=== PATIENT | male | born 1985 | race Caucasian/White ===

== ENCOUNTER 2017-07-18 07:48 | Day surgery (SDC) | payer BC, OTHER ==
[2017-07-11 09:34] VITALS: BMI 32.3
[~2017-07-18 07:48] MED LIST: DEXAMETHASONE SOD PHOSPHATE 4 MG/ML 1 ML VIAL IV ONE; FAMOTIDINE 20 MG/2 ML VIAL IV ONE; HYDROmorphone 0.5 MG/0.5 ML SYRINGE IVP PRN; MORPHINE SULFATE 4 MG/ML SYRINGE IV PRN; ONDANSETRON 4 MG/2 ML VIAL IVP ONE; ONDANSETRON 4 MG/2 ML VIAL IVP PRN; ceFAZolin 1,000 MG in DEXTROSE/WATER 1 50ML.BAG IV ONE
[2017-07-18] MEDS: OXYMETAZOLINE 0.05% NASL SPRAY 1 SPRAY BOTTLE NASAL ONE ×5 (08:45→09:10)
[2017-07-18] MEDS ORDERED: LIDOCAINE 1% 20 ML VIAL (10MG/ML) FOR IV START INTRADERMA ONE (09:10)
[2017-07-18] MEDS: LACTATED RINGERS 1,000 ML IV SCH ×2 (09:10→09:35)
[2017-07-18] MEDS ORDERED: MIDAZOLAM 2 MG/2 ML VIAL ONE (09:35)
[2017-07-18] MEDS ORDERED: ROCURONIUM BROMIDE 10 MG/ML 10 ML VIAL IV ONE (09:35)
[2017-07-18] MEDS ORDERED: fentaNYL (PF) 50 MCG/ML 2 ML AMP ONE (09:35)
[2017-07-18] MEDS ORDERED: GLYCOPYRROLATE 0.2 MG/ML 2 ML VIAL ONE (09:35)
[2017-07-18] MEDS ORDERED: PROPOFOL 10 MG/ML 20 ML VIAL IV ONE (09:35)
[2017-07-18] MEDS ORDERED: SUCCINYLCHOLINE CHLORIDE 100 MG/5 ML SYR IV ONE (09:35)
[2017-07-18] MEDS ORDERED: NEOSTIGMINE 1 MG/ML 10 ML VIAL ONE (09:35)
[2017-07-18] MEDS ORDERED: ONDANSETRON 4 MG/2 ML VIAL ONE (09:35)
[2017-07-18] MEDS ORDERED: DEXAMETHASONE SOD PHOS (MDV) 100 MG/10 ML VIAL ONE (09:35)
[2017-07-18] MEDS ORDERED: LIDOCAINE 1% INJ 10MG/ML (20 ML MDV) ONE (09:35)
[2017-07-18] MEDS ORDERED: BACITRACIN 500 UNIT/GM OINT 28.4 GM TUBE TOPICAL ONE (09:58)
[2017-07-18] MEDS ORDERED: LIDOCAINE-EPINEPHRINE (PF) 5 ML AMPUL SUBMUCOSAL ONE ×2 (10:00)
--- NOTE | 2017-07-18 10:35 | P.OP ---
Date of Procedure: 07/18/17 Preoperative Diagnosis: Deviated nasal septum Inferior turbinate hypertrophy Postoperative Diagnosis: Same Procedure(s) Performed: Septoplasty Outfracture and submucous resection of the inferior turbinates Anesthesia: GLENNA Surgeon: Junaid Barry Estimated Blood Loss (ml): 5 Pathology: other (Nasal septal bone and cartilage) Condition: stable Disposition: PACU Indications for Procedure: This is a 32-year-old white male whose had difficulties with chronic nasal airway obstruction bilaterally which is nonseasonal. He did not improve with steroid nasal spray or other medications. Operative Findings: Septum is deviated bilaterally. Inferior turbinate hypertrophy bilaterally the septum is deviated to the left anteriorly and to the right posteriorly but mostly to the right Description of Procedure: The patient was brought in the operative suite and placed in a supine position. Patient underwent induction of general anesthesia with oral endotracheal intubation without difficulty. The patient was prepped and draped in usual aseptic fashion. 1% lidocaine with 1-100,000 epinephrine was infused submucosally both sides nasal septum. While this was taking vasoconstrictive effect the inferior turbinates were infractured with the Travis elevator and Coblation was utilized to ablate a portion of the submucosal soft tissue of the inferior turbinates and then outfractured with the Travis elevator. A left hemitransfixion incision was made with the mucoperichondrial and mucoperiosteal flap on left elevated. Bony cartilaginous junction was disarticulated and the mucoperiosteal flap on the right was elevated. Bony nasal septal deformities were removed with Fco forceps and an inferior cartilaginous strip was removed leaving a full 1.5 cm caudal strut. Checking intranasally this corrected the nasoseptal deformities and the hemitransfixion incision was closed with a running 4-0 chromic suture. Bilateral Holliday airway splints coated bacitracin ointment were placed in nasal cavities and sutured trans-septally with a 4-0 Vicryl suture. The patient was suctioned in oral gastric fashion and was allowed to emerge from general anesthesia having tolerated procedure well. The patient was extubated operative suite and transferred to postop recovery in satisfactory condition.
[2017-07-18 10:45] VITALS: TEMP 96.8
[2017-07-18 10:52] VITALS: RESP 16
[2017-07-18] MEDS: fentaNYL (PF) 50 MCG/ML 2 ML AMP IV ONE ×2 (11:00→11:05)
[2017-07-18] MEDS: fentaNYL (PF) 50 MCG/ML 2 ML AMP IVP ONE ×2 (11:12→11:17)
[2017-07-18] MEDS ORDERED: LACTATED RINGERS 1,000 ML IV ONE (11:31)
[2017-07-18] MEDS ORDERED: HYDROcodone/APAP 7.5-325MG 1 EACH TAB PO ONE (11:43)
[2017-07-18 12:29] VITALS: BP 136/87; PULSE 89
== END 2017-07-18 12:42 | disposition home or self-care (01) ==
LOC: OR 07:48
PROVIDERS: ATTEND Otolaryngology
DX: J34.2 Deviated nasal septum (principal); J34.3 Hypertrophy of nasal turbinates
CPT/HCPCS: 88300; 30520; 30140; J2250; J1100 ×2; J2710; J2405; J2001; J3010; J0690; J0330; J2704

== ENCOUNTER 2019-09-25 11:48 | Emergency (ER) | payer BC, OTHER ==
[2019-09-25 11:53] VITALS: BP 159/95; PULSE 102; RESP 18; TEMP 97.9
[2019-09-25] MEDS ORDERED: KETOROLAC 60 MG/2 ML VIAL IM STA (12:26)
[2019-09-25] MEDS ORDERED: methylPREDNISolone SOD SUCCI 125 MG/2 ML VIAL IM ONE (12:26)
[2019-09-25] MEDS ORDERED: ACET/COD 300 MG/30 MG STARTER PACK 6 TAB BTL PO STA (12:26)
[2019-09-25] MEDS ORDERED: ORPHENADRINE 30 MG/ML 2 ML VIAL IM STA (12:26)
--- NOTE | 2019-09-25 12:29 | ED ---
Back Pain HPI - General Chief Complaint: Back Pain/Injury Stated Complaint: back pain Time Seen by Provider: 09/25/19 11:55 Source: patient, RN notes reviewed, old records reviewed Limitations: no limitations - History of Present Illness Initial Comments: Patient is a 34-year-old male presents emergency Department today for onset of back pain rating down the right leg. He has had symptoms of 4 and was diagnosed with sciatic nerve pain. Patient states the symptoms started yesterday after twisting at work. He had a dull ache at that time from the right side of the lower back to the leg. He states that after sleeping this morning he was unable to get up because of the severe pain with this right back and leg. He states that he has no abdominal pain. Denies saddle anesthesias. He denies any fevers or chills. He reports he previously was treated with steroids and anti- inflammatory medications. He did take Motrin prior to arrival. - Related Data Previous Rx's Medication Instructions Recorded Acetaminophen-Codeine 300-30mg 1 tab PO Q6H PRN 3 Days #12 tablet 09/25/19 [Tylenol w/codeine #3] Cyclobenzaprine [Flexeril] 10 mg PO TID #12 tab 09/25/19 Dexamethasone 0.75 mg PO DAILY #12 tab 09/25/19 Ibuprofen [Motrin] 600 mg PO Q8HR PRN #30 tab 09/25/19 Allergies Allergy/AdvReac Type Severity Reaction Status Date / Time No Known Allergies Allergy Verified 09/25/19 11:53 Review of Systems ROS Statement: Those systems with pertinent positive or pertinent negative responses have been documented in the HPI. ROS Other: All systems not noted in ROS Statement are negative. Past Medical History Past Medical History: No Reported History History of Any Multi-Drug Resistant Organisms: None Reported Past Surgical History: Orthopedic Surgery Additional Past Surgical History / Comment(s): left ankle, right wrist Past Anesthesia/Blood Transfusion Reactions: No Reported Reaction Past Psychological History: No Psychological Hx Reported Smoking Status: Never smoker Past Alcohol Use History: None Reported Past Drug Use History: None Reported - Past Family History Mother Family Medical History: No Reported History General Exam - General Exam Comments Initial Comments: Alert and oriented 34-year-old male. No significant distress. Limitations: no limitations General appearance: alert, in no apparent distress Head exam: Present: atraumatic, normocephalic, normal inspection Eye exam: Present: normal appearance, PERRL, EOMI. Absent: scleral icterus, conjunctival injection, periorbital swelling ENT exam: Present: normal exam, mucous membranes moist Neck exam: Present: normal inspection. Absent: tenderness, meningismus, lymphadenopathy Respiratory exam: Present: normal lung sounds bilaterally. Absent: respiratory distress, wheezes, rales, rhonchi, stridor Cardiovascular Exam: Present: regular rate, normal rhythm, normal heart sounds. Absent: systolic murmur, diastolic murmur, rubs, gallop, clicks GI/Abdominal exam: Present: soft, normal bowel sounds. Absent: distended, tenderness, guarding, rebound, rigid Extremities exam: Present: normal inspection, full ROM, normal capillary refill. Absent: tenderness, pedal edema, joint swelling, calf tenderness Back exam: Present: normal inspection, full ROM, other (Patient has positive right leg straight leg test. Normal pulses distally.) Neurological exam: Present: alert, oriented X3, CN II-XII intact Psychiatric exam: Present: normal affect, normal mood Skin exam: Present: warm, dry, intact, normal color. Absent: rash Course Vital Signs 09/25/19 11:51 Temperature 97.9 F Pulse Rate 102 H Respiratory 18 Rate Blood Pressure 159/95 O2 Sat by Pulse 99 Oximetry Medical Decision Making - Medical Decision Making 34-year-old male presents with right sciatic leg pain and back pain after laying in bed today after twisting it at work. Patient has no saddle anesthesias. He has full range of motion the leg. He does report reproducible pain with straight leg test on the right. No rashes or any other skin changes on the back or legs. Patient has normal pulses distally. He denies any fall or trauma and discussed that imaging is not required at this time. He was picked slightly treated for similar situation with steroids. He was given IM Toradol Solu- Medrol and Norflex and oral pain medication. Patient was reevaluated and resting in bed. Advised Patient to follow up with primary care physician and will discharge the Patient with anti-inflammatory medication and muscle relaxers. All questions were answered. Disposition Clinical Impression: Sciatica Disposition: HOME SELF-CARE Condition: Good Instructions (If sedation given, give patient instructions): Sciatica (ED) Additional Instructions: Results a between heat and ice to the lower back and over sciatic notch. Recommended do gentle stretching. Take anti-inflammatory medication. Return to ED if any alarming signs or symptoms occur. Prescriptions: Dexamethasone 0.75 mg PO DAILY #12 tab Cyclobenzaprine [Flexeril] 10 mg PO TID #12 tab Ibuprofen [Motrin] 600 mg PO Q8HR PRN #30 tab PRN Reason: Pain Acetaminophen-Codeine 300-30mg [Tylenol w/codeine #3] 1 tab PO Q6H PRN 3 Days #12 tablet PRN Reason: Pain Is patient prescribed a controlled substance at d/c from ED?: Yes If prescribed controlled substance>3 days was MAPS reviewed?: Prescribed <3 Days If opioid is for acute pain is fill amount 7 days or less?: Yes If Rx opioid, was Start Talking consent form obtained?: Yes Referrals: Willam Ramey DO [Primary Care Provider] - 1-2 days Time of Disposition: 12:26
== END 2019-09-25 12:57 | disposition home or self-care (01) ==
LOC: EC 11:48
DX: M54.31 Sciatica, right side (principal)
CPT/HCPCS: 99283; 96372 ×3; J2360; J2930; J1885

== ENCOUNTER → 2019-11-27 | Outpatient (CLI) | payer BC | END | disposition home or self-care (01) | LOC: LABWHC1 14:41 | PROVIDERS: ATTEND Emergency Medicine | DX: Z20.828 Contact with and (suspected) exposure to other viral communicable diseases (principal) | CPT/HCPCS: U0003; C9803 ==

== ENCOUNTER 2019-12-21 11:03 | Emergency (ER) | payer BC ==
[2019-12-21 11:16] VITALS: RESP 18
[2019-12-21] MEDS ORDERED: predniSONE 50 MG TAB PO STA (11:27)
[2019-12-21] MEDS ORDERED: KETOROLAC 15 MG/ML 1 ML VIAL IM STA (11:27)
[2019-12-21] MEDS ORDERED: ORPHENADRINE 30 MG/ML 2 ML VIAL IM STA (11:27)
--- NOTE | 2019-12-21 11:37 | ED ---
General Adult HPI - General Chief complaint: Back Pain/Injury Stated complaint: low back pain Time Seen by Provider: 12/21/19 11:17 Source: patient, RN notes reviewed Mode of arrival: ambulatory Limitations: no limitations - History of Present Illness Initial comments: 34-year-old male with a past medical history of sciatica presents to the emergency department for low back pain. Patient states that yesterday he was getting off his boat when his right foot slipped and he felt a pain in his back. States that it triggered his sciatica. He now has pain shooting down his right leg to his right knee. Patient reports that he feels okay bending forward but cannot stand up straight. Patient has a history of this. Patient reports he usually needs steroids to help with his pain. Patient states he sees chiropractor for this has never seen orthopedics or had MRI. Patient denies bladder or bowel changes. Denies saddle anesthesia. Denies weakness of the lower extremities. Patient denies fevers or history of IV drug abuse. Patient reports the last time he had Toradol and Norflex it helped significantly with his pain.Patient has no other complaints at this time including shortness of breath, chest pain, abdominal pain, nausea or vomiting, headache, or visual changes. - Related Data Previous Rx's Medication Instructions Recorded Acetaminophen-Codeine 300-30mg 1 tab PO Q6H PRN 3 Days #12 tablet 09/25/19 [Tylenol w/codeine #3] Cyclobenzaprine [Flexeril] 10 mg PO TID #12 tab 09/25/19 Ibuprofen [Motrin] 600 mg PO Q8HR PRN #30 tab 09/25/19 dexAMETHasone [Dexamethasone] 0.75 mg PO DAILY #12 tab 09/25/19 predniSONE 50 mg PO DAILY #4 tablet 12/21/19 Allergies Allergy/AdvReac Type Severity Reaction Status Date / Time No Known Allergies Allergy Verified 12/21/19 11:13 Review of Systems ROS Statement: Those systems with pertinent positive or pertinent negative responses have been documented in the HPI. ROS Other: All systems not noted in ROS Statement are negative. Past Medical History Past Medical History: No Reported History History of Any Multi-Drug Resistant Organisms: None Reported Past Surgical History: Orthopedic Surgery Additional Past Surgical History / Comment(s): left ankle, right wrist Past Anesthesia/Blood Transfusion Reactions: No Reported Reaction Past Psychological History: No Psychological Hx Reported Smoking Status: Never smoker Past Alcohol Use History: Occasional Past Drug Use History: None Reported - Past Family History Mother Family Medical History: No Reported History General Exam Limitations: no limitations General appearance: alert, in no apparent distress Head exam: Present: atraumatic, normocephalic, normal inspection Eye exam: Present: normal appearance, PERRL, EOMI. Absent: scleral icterus, conjunctival injection, periorbital swelling ENT exam: Present: normal exam, mucous membranes moist Neck exam: Present: normal inspection, full ROM. Absent: tenderness, menin gismus, lymphadenopathy Respiratory exam: Present: normal lung sounds bilaterally. Absent: respiratory distress, wheezes, rales, rhonchi, stridor Cardiovascular Exam: Present: regular rate, normal rhythm, normal heart sounds. Absent: systolic murmur, diastolic murmur, rubs, gallop, clicks GI/Abdominal exam: Present: soft, normal bowel sounds. Absent: distended, tenderness, guarding, rebound, rigid Extremities exam: Present: normal capillary refill (Capillary refill less than 2 seconds, DP pulses 2+ in the right lower extremity.), other (Strength 5 out of 5 in lower extremities bilaterally.) Neurological exam: Present: alert Psychiatric exam: Present: normal affect, normal mood Course Vital Signs 12/21/19 12/21/19 12/21/19 11:15 11:52 12:07 Temperature 98.8 F 98.3 F Pulse Rate 116 H 122 H 108 H Respiratory 18 18 Rate Blood Pressure 142/80 130/84 O2 Sat by Pulse 96 96 Oximetry Medical Decision Making - Medical Decision Making No red flag symptoms. Patient is complaining of sciatic-type symptoms. He does have a history of this. Distal pulses 2+. Sensation intact. Neurovascular status intact. Patient ambulatory. Patient was given Toradol and Norflex. He will be written a prescription for prednisone. He will follow up with primary care as well as orthopedics. He will return for any worsening symptoms. Patient was tachycardic here in the emergency room. Patient has a history of tachycardia on review of previous charts. Patient reports that he is very anxious. States he has anxiety with being in the ER. Patient states the mask is also causing him some anxiety. States he also drink a monster just before coming this morning and did not eat anything for breakfast. Patient also does have mild pain. Heart rate did improve to 108. I did offer further management of heart rate however patient prefers to be discharged and follow-up with a primary care physician. He states he has no other symptoms. I did repeat a temperature which is 98.3. I discussed this case with attending Dr. Davies who agrees with this assessment and treatment plan. Disposition Clinical Impression: Mechanical back pain, Lumbar radiculopathy, acute Disposition: HOME SELF-CARE Condition: Good Instructions (If sedation given, give patient instructions): Lumbar Radiculopathy (ED) Additional Instructions: Please take Tylenol for pain. Take prednisone as directed. Follow up with primary care and orthopedics. If you have worsening symptoms such as bladder or bowel changes, numbness or tingling in the groin or buttock region, weakness of the legs, or fevers return immediately to the emergency room. Prescriptions: predniSONE 50 mg PO DAILY #4 tablet Is patient prescribed a controlled substance at d/c from ED?: No Referrals: Mark Fine DO [Doctor of Osteopathic Medicine] - 1-2 days Time of Disposition: 11:35
[2019-12-21 12:08] VITALS: BP 130/84; PULSE 108; TEMP 98.3
== END 2019-12-21 12:08 | disposition home or self-care (01) ==
LOC: EC 11:03
DX: M54.16 Radiculopathy, lumbar region (principal); R00.0 Tachycardia, unspecified; F41.9 Anxiety disorder, unspecified; Z98.890 Other specified postprocedural states
CPT/HCPCS: 99283; 96372 ×2; J2360; J1885; J7512

== ENCOUNTER → 2020-03-02 | Outpatient (CLI) | payer BC | END | disposition home or self-care (01) | LOC: LABWHC1 16:00 | PROVIDERS: ATTEND Emergency Medicine | DX: Z20.828 Contact with and (suspected) exposure to other viral communicable diseases (principal) | CPT/HCPCS: U0003; C9803 ==

== ENCOUNTER → 2020-03-10 | Outpatient (CLI) | payer BC ==
--- NOTE | 2020-03-11 06:56 | MR ---
EXAMINATION TYPE: MR lumbar spine wo con DATE OF EXAM: 03/10/2020 COMPARISON: CT abdomen and pelvis September 09, 2013. Lumbar spine x-ray 2012 HISTORY: Low back pain per order. Pain for 3 months into right lower extremity per patient. TECHNIQUE: Multiplanar, multisequence imaging of the lumbar spine is performed without IV contrast. FINDINGS: Sagittal images of the lumbar spine show vertebral body heights to remain satisfactory. Ali gnment stable with slight grade 1 retrolisthesis L5 on S1. Disc desiccation L5-S1 level with mild dis c space narrowing otherwise the intervertebral discs demonstrate normal heights and hydration. The c onus medullaris is normal in position and signal ending at mid L1 level. The bone marrow signal inte nsity is within normal limits. Axial images T12-L1 through the L3-L4 levels appear within normal limits. Axial images at the L4-L5 level show mild facet degenerative changes bilaterally. Axial images at the L5-S1 level show mild broad disc bulge with more prominent broad-based right para central disc protrusion measuring 5 mm in AP diameter by 20 mm transversely axial image 6 and sagitta l image 9. This effaces anterolateral thecal sac along with the lateral recess and the central right S1 nerve. Mild bilateral neural foraminal narrowing noted. [id number] facet degenerative change s bilaterally. Paraspinal muscle bulk is preserved. IMPRESSION: Prominent disc herniation L5-S1 level correlates with patient's right-sided radiculopathy type symptoms.
== END | disposition home or self-care (01) ==
LOC: RADMRIMAIN 16:15
PROVIDERS: ATTEND Orthopaedic Surgery
DX: M51.27 Other intervertebral disc displacement, lumbosacral region (principal)
CPT/HCPCS: 72148

== ENCOUNTER → 2020-03-19 | Outpatient (CLI) | payer BC ==
[2020-03-19 14:35] LABS: Basophils # (A) 0.2 k/uL (0-0.2); Basophils % (A) 2 %; Eosinophils # (A) 0.3 k/uL (0-0.7); Eosinophils % (A) 3 %; Lymphocytes # (A) 2.8 k/uL (1.0-4.8); Lymphocytes % (A) 28 %; MCHC 34.1 g/dL (31.0-37.0); Mean Platelet Volume 6.6; Monocytes # (A) 0.5 k/uL (0-1.0); Monocytes % (A) 5 %; Neutrophils # (A) 6.3 k/uL (1.3-7.7); Neutrophils % (A) 61 %; Platelet Count 426 k/uL (150-450); RDW 12.4 % (11.5-15.5); WBC 10.3 k/uL (3.8-10.6)
== END | disposition home or self-care (01) ==
LOC: LABPAT 13:46
PROVIDERS: ATTEND Orthopaedic Surgery
DX: Z22.322 Carrier or suspected carrier of Methicillin resistant Staphylococcus aureus (principal); M48.061 Spinal stenosis, lumbar region without neurogenic claudication; M51.26 Other intervertebral disc displacement, lumbar region
CPT/HCPCS: 80051; 85025; 85610; 87070

== ENCOUNTER 2020-04-13 18:31 | Inpatient (IN) | payer BC ==
[2020-04-13] MEDS ORDERED: ACETAMINOPHEN TAB 500 MG TAB PO STA (19:13)
--- NOTE | 2020-04-13 19:19 | ED ---
General Adult HPI - General Chief complaint: Recheck/Abnormal Lab/Rx Stated complaint: poss post op infection, fever Time Seen by Provider: 04/13/20 19:01 Source: patient, RN notes reviewed Mode of arrival: wheelchair Limitations: no limitations - History of Present Illness Initial comments: Patient is a pleasant 34-year-old male presenting to the emergency department with concerns for fever. Patient did have dissected me done with Dr. Carpio 7 on March 24. Patient states over the past week or 2 he has been having some dehiscence of the wound with yellow discharge, clear. Patient has pain with walking. No weakness. Patient did develop fever today. Patient is on antibiotics and does have 4 days left. - Related Data Home Medications Medication Instructions Recorded Confirmed Acetaminophen Tab [Tylenol] 1,000 mg PO Q6H PRN 04/13/20 04/13/20 Cyclobenzaprine [Flexeril] 10 mg PO TID PRN 04/13/20 04/13/20 Gabapentin 300 mg PO TID PRN 04/13/20 04/13/20 [id number] [Duricef] 500 mg PO BID 04/13/20 04/13/20 Allergies Allergy/AdvReac Type Severity Reaction Status Date / Time No Known Allergies Allergy Verified 04/13/20 19:48 Review of Systems ROS Statement: Those systems with pertinent positive or pertinent negative responses have been documented in the HPI. ROS Other: All systems not noted in ROS Statement are negative. Constitutional: Reports: fever, chills Eyes: Denies: eye pain ENT: Denies: ear pain Respiratory: Denies: cough Cardiovascular: Denies: chest pain Endocrine: Denies: fatigue Gastrointestinal: Denies: abdominal pain Genitourinary: Denies: dysuria Musculoskeletal: Denies: back pain Skin: Denies: lesions Neurological: Denies: weakness Past Medical History Past Medical History: No Reported History History of Any Multi-Drug Resistant Organisms: None Reported Past Surgical History: Orthopedic Surgery Additional Past Surgical History / Comment(s): left ankle, right wrist, back surgery 03/24/20 Past Anesthesia/Blood Transfusion Reactions: No Reported Reaction Past Psychological History: No Psychological Hx Reported Smoking Status: Never smoker Past Alcohol Use History: Occasional Past Drug Use History: None Reported - Past Family History Mother Family Medical History: No Reported History General Exam Limitations: no limitations General appearance: alert, in no apparent distress Head exam: Present: atraumatic, normocephalic Eye exam: Present: normal appearance, PERRL ENT exam: Present: normal oropharynx Neck exam: Present: normal inspection. Absent: tenderness, meningismus Respiratory exam: Present: normal lung sounds bilaterally Cardiovascular Exam: Present: tachycardia GI/Abdominal exam: Present: soft. Absent: distended, tenderness Extremities exam: Present: normal inspection Back exam: Present: other (Midline lumbar incision with mild dehiscence and mild yellow drainage, minimal erythema does not extend past the wound) Neurological exam: Present: alert. Absent: motor sensory deficit Expanded Sensory exam: Lower Extremity Light Touch: Normal Motor strength exam: RUE: 5, LUE: 5, RLE: 5, LLE: 5 Psychiatric exam: Present: normal affect, normal mood Skin exam: Present: erythema (Minimal erythema at the wound site that does not extend past) Course Vital Signs 04/13/20 04/13/20 04/13/20 18:33 19:50 20:22 Temperature 99.6 F 101.9 F H Pulse Rate 118 H 124 H 128 H Respiratory 18 18 20 Rate Blood Pressure 135/78 146/95 140/97 O2 Sat by Pulse 98 97 96 Oximetry - Reevaluation(s) Reevaluation #1: 04/13/20 20:59 Patient does meet sepsis criteria diagnosed at 2049. Blood culture and lactic acid were ordered. IV antibiotics will be ordered. EKG Findings - EKG Comments: EKG Findings:: Sinus tachycardia 126. IN 146. QRS 80. QT 292. QTC 422. Normal axis. Normal QRS. No acute ST change. Medical Decision Making - Medical Decision Making Patient reevaluated and updated. Case discussed with Dr. Joshi, covering for Keith Baldwin, who will admit. He does recommend IV Ancef and infectious disease consult. - Lab Data Result diagrams: 04/13/20 19:41 04/13/20 19:49 Lab Results 04/13/20 04/13/20 04/13/20 Range/Units 19:41 19:49 19:49 WBC 13.5 H (3.8-10.6) k/uL RBC 5.47 (4.30-5.90) m/uL Hgb 16.1 (13.0-17.5) gm/dL Hct 48.2 (39.0-53.0) % MCV 88.2 (80.0-100.0) fL MCH 29.5 (25.0-35.0) pg MCHC 33.5 (31.0-37.0) g/dL RDW 12.9 (11.5-15.5) % Plt Count 416 (150-450) k/uL MPV 6.9 Neutrophils % 86 % Lymphocytes % 7 % Monocytes % 5 % Eosinophils % 1 % Basophils % 1 % Neutrophils # 11.6 H (1.3-7.7) k/uL Lymphocytes # 1.0 (1.0-4.8) k/uL Monocytes # 0.7 (0-1.0) k/uL Eosinophils # 0.1 (0-0.7) k/uL Basophils # 0.1 (0-0.2) k/uL PT 10.8 (9.0-12.0) sec INR 1.0 (<1.2) APTT 25.7 (22.0-30.0) sec Sodium 135 L (137-145) mmol/L Potassium 4.5 (3.5-5.1) mmol/L Chloride 98 (98-107) mmol/L Carbon Dioxide 27 (22-30) mmol/L Anion Gap 10 mmol/L BUN 16 (9-20) mg/dL Creatinine 0.91 (0.66-1.25) mg/dL Est GFR (CKD-EPI)AfAm >90 (>60 ml/min/1.73 sqM) Est GFR (CKD-EPI)NonAf >90 (>60 ml/min/1.73 sqM) Glucose 104 H (74-99) mg/dL Plasma Lactic Acid Anatoly (0.7-2.0) mmol/L Calcium 9.8 (8.4-10.2) mg/dL Total Bilirubin 1.0 (0.2-1.3) mg/dL AST 46 (17-59) U/L ALT 54 H (4-49) U/L Alkaline Phosphatase 83 (38-126) U/L Total Protein 8.6 H (6.3-8.2) g/dL Albumin 5.0 (3.5-5.0) g/dL Urine Color Urine Appearance (Clear) Urine pH (5.0-8.0) Ur Specific [place] (1.001-1.035) Urine Protein (Negative) Urine Glucose (UA) (Negative) Urine Ketones (Negative) Urine Blood (Negative) Urine Nitrite (Negative) Urine Bilirubin (Negative) Urine Urobilinogen (<2.0) mg/dL Ur Leukocyte Esterase (Negative) Urine RBC (0-5) /hpf Urine WBC (0-5) /hpf Urine Mucus (None) /hpf Coronavirus (PCR) (Not Detectd) 04/13/20 04/13/20 04/13/20 Range/Units 19:49 19:49 20:22 WBC (3.8-10.6) k/uL RBC (4.30-5.90) m/uL Hgb (13.0-17.5) gm/dL Hct (39.0-53.0) % MCV (80.0-100.0) fL MCH (25.0-35.0) pg MCHC (31.0-37.0) g/dL RDW (11.5-15.5) % Plt Count (150-450) k/uL MPV Neutrophils % % Lymphocytes % % Monocytes % % Eosinophils % % Basophils % % Neutrophils # (1.3-7.7) k/uL Lymphocytes # (1.0-4.8) k/uL Monocytes # (0-1.0) k/uL Eosinophils # (0-0.7) k/uL Basophils # (0-0.2) k/uL PT (9.0-12.0) sec INR (<1.2) APTT (22.0-30.0) sec Sodium (137-145) mmol/L Potassium (3.5-5.1) mmol/L Chloride (98-107) mmol/L Carbon Dioxide (22-30) mmol/L Anion Gap mmol/L BUN (9-20) mg/dL Creatinine (0.66-1.25) mg/dL Est GFR (CKD-EPI)AfAm (>60 ml/min/1.73 sqM) Est GFR (CKD-EPI)NonAf (>60 ml/min/1.73 sqM) Glucose (74-99) mg/dL Plasma Lactic Acid Anatoly 1.9 (0.7-2.0) mmol/L Calcium (8.4-10.2) mg/dL Total Bilirubin (0.2-1.3) mg/dL AST (17-59) U/L ALT (4-49) U/L Alkaline Phosphatase (38-126) U/L Total Protein (6.3-8.2) g/dL Albumin (3.5-5.0) g/dL Urine Color Yellow Urine Appearance Clear (Clear) Urine pH 5.5 (5.0-8.0) Ur Specific [place] 1.023 (1.001-1.035) Urine Protein Negative (Negative) Urine Glucose (UA) Negative (Negative) Urine Ketones Negative (Negative) Urine Blood Small H (Negative) Urine Nitrite Negative (Negative) Urine Bilirubin Negative (Negative) Urine Urobilinogen <2.0 (<2.0) mg/dL Ur Leukocyte Esterase Negative (Negative) Urine RBC 2 (0-5) /hpf Urine WBC <1 (0-5) /hpf Urine Mucus Rare H (None) /hpf Coronavirus (PCR) Not Detected (Not Detectd) - Radiology Data Radiology results: image reviewed (Chest x-ray shows no acute process) Critical Care Time Critical Care Time: Yes Total Critical Care Time: 32 Disposition Clinical Impression: Postoperative infection, Sepsis Disposition: ADMITTED IP TO THIS HOSP Is patient prescribed a controlled substance at d/c from ED?: No Referrals: Nicholas Hill DO [Primary Care Provider] - 1-2 days Decision Time: 21:00
[2020-04-13] MEDS: SODIUM CHLORIDE 0.9% 1,000 ML IV SCH (19:21)
[2020-04-13] MEDS: SODIUM CHLORIDE 0.9% 500 ML 500 ML IV SCH ×3 (19:23→21:00)
[2020-04-13 19:56] LABS: Basophils # (A) 0.1 k/uL (0-0.2); Basophils % (A) 1 %; Eosinophils # (A) 0.1 k/uL (0-0.7); Eosinophils % (A) 1 %; HCT 48.2 % (39.0-53.0); HGB 16.1 gm/dL (13.0-17.5); Lymphocytes % (A) 7 %; MCH 29.5 pg (25.0-35.0); MCHC 33.5 g/dL (31.0-37.0); MCV 88.2 fL (80.0-100.0); Mean Platelet Volume 6.9; Monocytes # (A) 0.7 k/uL (0-1.0); Monocytes % (A) 5 %; Neutrophils # (A) 11.6 k/uL (1.3-7.7); Neutrophils % (A) 86 %; Platelet Count 416 k/uL (150-450); RBC 5.47 m/uL (4.30-5.90); RDW 12.9 % (11.5-15.5); WBC 13.5 k/uL (3.8-10.6)
[2020-04-13 20:05] LABS: Partial Thromboplastin Time 25.7 sec (22.0-30.0); Prothrombin Time 10.8 sec (9.0-12.0)
--- NOTE | 2020-04-13 20:05 | XR ---
EXAMINATION TYPE: XR chest 2V DATE OF EXAM: 04/13/2020 COMPARISON: 09/21/2012 HISTORY: Fever TECHNIQUE: FINDINGS: Heart and mediastinum are normal. Lungs are clear. Diaphragm is normal. There are chest harsha ds. Bony thorax is intact. IMPRESSION: Normal chest. No change.
[2020-04-13 20:06] LABS: ALT 54 U/L (4-49); AST 46 U/L (17-59); African American GFR (CKD) >90 (>60 ml/min/1.73 sqM); Alkaline Phosphatase 83 U/L (38-126); Anion Gap 10 mmol/L; Blood Urea Nitrogen 16 mg/dL (9-20); Calcium 9.8 mg/dL (8.4-10.2); Carbon Dioxide 27 mmol/L (22-30); Chloride 98 mmol/L (98-107); Glucose 104 mg/dL (74-99); Non-African American GFR(CKD) >90 (>60 ml/min/1.73 sqM); Potassium 4.5 mmol/L (3.5-5.1); Sodium 135 mmol/L (137-145); Total Protein 8.6 g/dL (6.3-8.2)
[2020-04-13 20:31] LABS: Appearance,Urine Clear (Clear); Bilirubin,Urine Negative (Negative); Blood,Urine Small (Negative); Color,Urine Yellow; Glucose,Urine (UA) Negative (Negative); Ketones,Urine Negative (Negative); Leukocyte Esterase,Urine Negative (Negative); Mucus,Urine Rare /hpf; Nitrite,Urine Negative (Negative); PH, Urine 5.5 (5.0-8.0); Protein,Urine Negative (Negative); RBC,Urine 2 /hpf (0-5); Specific Gravity,Urine 1.023 (1.001-1.035); Urobilinogen,Urine <2.0 mg/dL (<2.0); WBC,Urine <1 /hpf (0-5)
[2020-04-13] MEDS ORDERED: SODIUM CHLORIDE 0.9% 1,000 ML IV STA (20:58)
[2020-04-13] MEDS ORDERED: cefTRIAXone IN SWFI 1,000 MG/10 ML SYRINGE IVP STA (21:00)
[2020-04-13] MEDS ORDERED: NALOXONE 0.4 MG/ML 1 ML VIAL IV PRN (21:00)
[2020-04-13] MEDS: HYDROmorphone 0.5 MG/0.5 ML SYRINGE IVP PRN (21:12)
[2020-04-14] MEDS: HYDROmorphone 1 MG/ML 1 ML SYRINGE IVP PRN ×2 (00:49→05:55)
[2020-04-14] MEDS: ACETAMINOPHEN TAB 325 MG TAB PO PRN ×2 (04:35→21:41)
[2020-04-14] MEDS: SODIUM CHLORIDE 0.9% 1,000 ML IV SCH ×3 (04:35→15:39)
[2020-04-14 06:46] LABS: Basophils # (A) 0.1 k/uL (0-0.2); Basophils % (A) 1 %; Eosinophils # (A) 0.1 k/uL (0-0.7); Eosinophils % (A) 0 %; HCT 42.6 % (39.0-53.0); HGB 14.5 gm/dL (13.0-17.5); Lymphocytes # (A) 0.9 k/uL (1.0-4.8); Lymphocytes % (A) 9 %; MCH 29.9 pg (25.0-35.0); MCV 88.2 fL (80.0-100.0); Mean Platelet Volume 6.2; Monocytes # (A) 0.6 k/uL (0-1.0); Monocytes % (A) 5 %; Neutrophils # (A) 8.6 k/uL (1.3-7.7); Neutrophils % (A) 84 %; Platelet Count 326 k/uL (150-450); RBC 4.84 m/uL (4.30-5.90); RDW 12.5 % (11.5-15.5); WBC 10.3 k/uL (3.8-10.6)
[2020-04-14] MEDS: PANTOPRAZOLE 40 MG/10 ML VIAL IV SCH (08:14)
--- NOTE | 2020-04-14 08:59 | P.HPOR ---
History of Present Illness H&P Date: 04/14/20 Chief Complaint: My low back is hurting and numb have a fever 34-year-old male who is 3 weeks status post L5-S1 microdiscectomy presents to the ED complaining of fever of 103 chills low back pain and continued drainage from his wound. The patient was seen in office a week ago and had removed the ex-O Bart tape prematurely which caused mild superficial dehiscence to his wound however this was amendable with Steri-Strips there was no purulence and the patient was afebrile at this time. He was placed on a prophylactic course of Duricef. The patient states that he was doing okay after this but then took a turn the last couple of days with fever chills increased pain in his back and continued discharge from his back. He denies any headache shortness of breath or chest pain at this time. He states no leg pain at this time. He states he has been up and about and walking without any issues. He denies any other symptoms currently. Review of Systems 14 points review of systems completed and as stated in HPI, all other systems reviewed are negative. Past Medical History Past Medical History: No Reported History History of Any Multi-Drug Resistant Organisms: None Reported Past Surgical History: Orthopedic Surgery Additional Past Surgical History / Comment(s): left ankle sx, right wrist sx, back surgery 03/24/20. Past Anesthesia/Blood Transfusion Reactions: No Reported Reaction Past Psychological History: No Psychological Hx Reported Smoking Status: Never smoker Past Alcohol Use History: Occasional, Rare Past Drug Use History: Marijuana Additional Drug Use History / Comment(s): marijuana use daily - Past Family History Mother Family Medical History: No Reported History Medications and Allergies Home Medications Medication Instructions Recorded Confirmed Type Acetaminophen Tab [Tylenol] 1,000 mg PO Q6H PRN 04/13/20 04/13/20 History Cyclobenzaprine [Flexeril] 10 mg PO TID PRN 04/13/20 04/13/20 History Gabapentin 300 mg PO TID PRN 04/13/20 04/13/20 History cefaDROXiL [Duricef] 500 mg PO BID 04/13/20 04/13/20 History Allergies Allergy/AdvReac Type Severity Reaction Status Date / Time No Known Allergies Allergy Verified 04/13/20 19:48 Physical Examination Osteopathic Statement: *. No significant issues noted on an osteopathic stru ctural exam other than those noted in the History and Physical/Consult. Patient is alert and oriented 3 appears well-nourished well-hydrated and is in no acute distress. He does not appear septic at this time. Heart rate is normal he has normal chest rise and symmetric breaths. Inspection of his lumbar wound shows dehiscence superficially of the skin and soft tissue. There is serous sanguinous discharge coming from the inferior portion of the incision. There is no erythema around the incision. The skin has dehisced in this area as well. There is tenderness to palpation around the incision. There is no fluctuance felt. Patient has 5 out of 5 strength in dorsiflexion and plantarflexion EHL FHL knee flexion and extension and hip flexion and extension in bilateral lower extremities. He has 5 out of 5 strength in all major muscle groups of the upper extremity's bilaterally. Patient is intact to light touch sensation in the L2 S1 nerve distribution. He has palpable dorsalis pedis as well as posterior tibial pulses. Compartments are soft and compressible. He has 2/4 DTRs in all lower extremities. Negative Hoffmans negative Babinski and negative clonus bilaterally. Patient has full painless range of motion in all major joints of the lower extremity. Results CT pending - Labs Labs: Abnormal Lab Results - Last 24 Hours (Table) 04/13/20 04/13/20 04/13/20 Range/Units 19:41 19:49 20:22 WBC 13.5 H (3.8-10.6) k/uL Neutrophils # 11.6 H (1.3-7.7) k/uL Lymphocytes # (1.0-4.8) k/uL Sodium 135 L (137-145) mmol/L Glucose 104 H (74-99) mg/dL ALT 54 H (4-49) U/L Total Protein 8.6 H (6.3-8.2) g/dL Urine Blood Small H (Negative) Urine Mucus Rare H (None) /hpf 04/14/20 Range/Units 06:27 WBC (3.8-10.6) k/uL Neutrophils # 8.6 H (1.3-7.7) k/uL Lymphocytes # 0.9 L (1.0-4.8) k/uL Sodium (137-145) mmol/L Glucose (74-99) mg/dL ALT (4-49) U/L Total Protein (6.3-8.2) g/dL Urine Blood (Negative) Urine Mucus (None) /hpf H & H 04/13/20 04/14/20 Range/Units 19:41 06:27 Hgb 16.1 14.5 (13.0-17.5) gm/dL Hct 48.2 42.6 (39.0-53.0) % Coagulation 04/13/20 Range/Units 19:49 INR 1.0 (<1.2) Result Diagrams: 04/14/20 06:27 04/13/20 19:49 Assessment and Plan Assessment: 34-year-old male status post L5-S1 discectomy 3 weeks out with superficial skin dehiscence and continued drainage Plan: -Appreciate ID consult -Pain control: Adequate at this time -Aggressive ambulation protocol. OOB with all meals. OOB or in chair 4-5x daily. -PT/OT -TEDs, SCDs, mechanical ppx. OK for heparin today. Early ambulation is best. -GI ppx. -CT of the lumbar spine pending without -Trend labs. -Nothing by mouth -OR today for irrigation debridement and revision closure of lumbar spine wound Spine Surgery Risk Review Jabari Alanis is a 4-year-old male presenting for evaluation of to need back pain drainage from his wound and fever. It was my pleasure to have seen and examined Jabari Alanis. In our visit today we have had a chance to go over subjective complaints, physical examination findings and treatments including the natural course history without intervention and various interventional options. The patients imaging demonstrates previous L5-S1 disc herniation status post microdiscectomy. On physical exam, Jabari Alanis demonstrates drainage from his lumbar wound with pain and fever. I have explained to the patient that as their condition progresses it will cause further neurological deficits and eventual paralysis. Based on the patients imaging, physical exam, and the rapid progression and disabling nature of their symptoms, at this time I recommend surgery in the form or a: Irrigation and debridement of lumbar wound with revision closure. I discussed the risk and benefits of this procedure at length with Jabari Alanis. The patient agreed to considered pursuing the procedure abovementioned. Prior to surgery, she should follow up with her PCP (Cardio, ID, IM etc) for clearance. Questions were invited and answered, and the patient wishes to proceed as outlined below. Currently, I am recommendin. Irrigation and debridement of lumbar wound with revision closure and possible antibiotic bead placement 2. Follow up with PCP for surgical clearance 3. Review of surgical risks and benefits as well as an educational packet on the proposed surgical procedure. Risks: All surgical procedures come with inherent risks, including those related to positioning, anesthesia, intraoperative findings, and postoperative complications. It is important to understand that surgery does not come with any guarantee of a successful outcome as complications and adverse events are always possible. The patient was given a handout in office today discussing the surgical procedure and risks associated with the intervention, both of which were discussed with the patient. These risks include but are not limited to the following: * Experiencing same, different or even worse symptoms in back, neck, arms, or legs compared to before surgery. * Requiring further surgery or other forms of treatment presently or at some time in the future at same or other levels of the intended spine surgery. * On an extreme but fortunately relatively rare basis severe complication such as blindness, stroke, heart attack, temporary and/or permanent nerve injury, paralysis, coma, or may occur, sometimes without known explanation. * Surgical complications may include but are not limited to risk of infection, fluid accumulation in the surgical dissection site, including a seroma or hematoma, that requires additional surgery, wound drainage, bleeding, new numbness or weakness, vision changes/loss, spinal fluid leakage, non-healing and/or infected incision, headaches, difficulty or inability to swallow, hoarseness, hemopneumothorax, pneumothorax, impotence, retrograde ejaculation, vaginal dryness; injury to nerves, spinal cord, blood vessels, lymphatics or other vital organs (i.e., bowel injury, injury to the great vessels); heterotopic bone formation; complications related to the hardware such as screws, rods, cages including misplaced hardware, device failure, instrumentation at the wrong spine level, hardware fracture/breakage, or hardware loosening; vertebral failure of the spinal column above or below the newly placed hardware; retained surgical instrumentations or devices and the need for further surgery. * Medical risks of the planned spine surgery include but are not limited to generalized Infections to the whole body or local areas outside of the surgical site (sepsis), heart attack, bleeding, anaphylaxis, meningitis, seizure, epilepsy, hearing loss, burn claudio, laceration of the head or other areas of the body, bruising, hypersensitivity of the skin, bladder over distension; allergic reaction; shoulder injury related to positioning; fat, blood and air clots to other areas of the body like heart, lungs, brain; failure of internal organs such as lungs, kidneys, liver and excessive bleeding. If blood transfusions are necessary, note that transfusions may cause intolerance reactions such as anaphylaxis or other complex reactions. * Despite best efforts, the results of spine surgery might not heal in terms of bone, soft tissues such as skin, fascia, ligaments, and joints. Additionally, in order to achieve best possible results, spine surgery may be carried out beyond the initially planned levels and involve decompression, fusion including insertion of hardware at levels other than the original intended area of surgical interest change some portions of the procedure in order to ensure the best possible outcomes. * With spine surgery and spinal fusion, there are different off label uses of instrumentation (devices, implants and hardware) as well as biological substances (bone morphogenic proteins, demineralized bone matrix) as well as using extra bone from allograft sources (i.e. cadaver bone) or autograft (iliac crest bone, ribs, or the spine itself). The patient has been given information about these practices and their inherent risks and benefits. * [facility] is an educational center that serves as a training faci lity for neurosurgical and orthopedic spine residents and fellows. Residents are physicians who are completing their surgical intensive training following medical school. They assist in the operating room with direct supervision of the attending surgeons. [place] are surgeons who have completed their training and eligible for board certification. They have opted for an elective year of more specialized training in their field. They assist in the operating room under the supervision of the attending surgeons. Physician assistants are medically trained surgical providers who function in the outpatient, inpatient, and operating room setting under the direct supervision of the attending surgeon. * [facility] has multiple operating rooms with single and overlapping rooms running daily. They currently function under the required guidelines as produced by the Senate Finance Committee with regards to the overlapping rooms and will continue to comply with changes to this policy as they occur. The requirements include and are complied with as follows: (1) the critical portions of the overlapping rooms will not occur at the same time, (2) the attending physician will be physically present during the critical portions of the procedure and immediately available during the entire case, and (3) a back-up attending is designated should the primary attending not be immediately available. The patient has had a chance to review all the listed information, has been given print outs detailing this information, and has had all his/her questions answered to their satisfaction. It was my pleasure to have seen and examined Jabari Alanis. In our visit today we have had a chance to go over my understanding of our patient's current condition, the natural course history without intervention and various interventional options. Questions were invited and answered, and the patient wishes to proceed as outlined above. I have seen and examined the patient for 25 minutes and we have spent more than 50% of the time in repeat and detailed counseling about the patient's condition, its natural course history with out and as much as can be predicted with surgery and re-review of various surgical treatment options. In conclusion, Jabari Alanis and his requested we proceed with the above suggested surgery and are willing to accept risks and limitations of the suggested surgery as nature of the disease process and our best attempts at treatment for the condition. Thank you again for allowing us to be part of your patient's care. Please don't hesitate to contact me if you have any further questions. Signed and authenticated by: [facility]n [facility] [address], [address] [address]
[2020-04-14] MEDS: HYDROcodone/APAP 5-325MG 1 EACH TAB PO PRN ×3 (09:47→21:36)
[2020-04-14] MEDS: ONDANSETRON 4 MG/2 ML VIAL IVP PRN ×2 (09:47→21:36)
--- NOTE | 2020-04-14 09:49 | CT ---
EXAMINATION TYPE: CT lumbar spine wo con DATE OF EXAM: 04/14/2020 COMPARISON: MRI 03/10/2020 HISTORY: Post op infection CT DLP: 1145.6 mGycm CONTRAST: None TECHNIQUE: CT of the lumbar spine is performed on a spiral scan at 3 mm thick sections. Reconstructed images are performed in the coronal and sagittal planes. FINDINGS: T12-L1: No focal disc herniation or significant disc bulge is evident. No spinal canal stenosis or neural foraminal stenosis is present. L1-L2: No focal disc herniation or significant disc bulge is evident. No spinal canal stenosis or n eural foraminal stenosis is present L2-L3: No focal disc herniation or significant disc bulge is evident. No spinal canal stenosis or n eural foraminal stenosis is present L3-L4: No focal disc herniation or significant disc bulge is evident. No spinal canal stenosis or n eural foraminal stenosis is present L4-L5: No focal disc herniation or significant disc bulge is evident. No spinal canal stenosis or n eural foraminal stenosis is present L5-S1: Postlaminectomy changes are on the right at L5. Subcutaneous emphysema is within the soft tiss ues posterior to the spinous processes of L3-L5. Given the timeframe of the surgery, gas forming orga nism should be considered. No abscess formation is evident. Broad-based disc bulge is present L5-S1 w ith anterior thecal sac contact. Some moderate right foraminal stenosis is present. Previous right pa racentral disc herniation is absent. Vertebral alignment appears normal. IMPRESSION: Moderate right foraminal narrowing L5-S1. 2. Post right hemilaminectomy L5. 3. Air present within the posterior paraspinal soft tissues extending from the L3-L5 spinous processe s. No abscess formation is evident.
[2020-04-14] MEDS ORDERED: VANCOMYCIN IV PER PHARMACY 1 EACH MISC MISCELLANE PRN (14:33)
[2020-04-14] MEDS: VANCOMYCIN 1,750 MG in SODIUM CHLORIDE 0.9% 500 ML 500 ML IVPB SCH ×2 (15:38→21:37)
--- NOTE | 2020-04-14 15:53 | P.CONS ---
History of Present Illness - Reason for Consult Consult date: 04/14/20 Medical management /fevers, hypertension,daily THC use Requesting physician: Bryn Watters - Chief Complaint Status post microdiscectomy with lower back pain, incisional drain - History of Present Illness This is a 34-year-old gentleman with history of daily marijuana use, recent microdiscectomy L5-S1 3 weeks ago presenting with fevers, weakness, shakiness, incisional drainage. Apparently patient had removed the dressing prematurely developed dehiscence with serosanguineous drainage. Placed on prophylactic antibiotics but symptoms worsened in addition to drainage from surgical wound. Patient is scheduled for I&D today with orthopedic surgery. Denies chest pain, palpitations or shortness of breath. Denies lightheadedness dizziness or focal deficits. T-max 102.3, blood cultures obtained, pending. Received Rocephin followed by vancomycin. Chest x-ray reporting normal chest, no change. EKG sinus tachycardia, Review of Systems ROS Statement: Those systems with pertinent positive or pertinent negative responses have been documented in the HPI. ROS Other: All systems not noted in ROS Statement are negative. Past Medical History Past Medical History: No Reported History History of Any Multi-Drug Resistant Organisms: None Reported Past Surgical History: Orthopedic Surgery Additional Past Surgical History / Comment(s): left ankle sx, right wrist sx, back surgery 03/24/20. Past Anesthesia/Blood Transfusion Reactions: No Reported Reaction Past Psychological History: No Psychological Hx Reported Smoking Status: Never smoker Past Alcohol Use History: Occasional, Rare Past Drug Use History: Marijuana Additional Drug Use History / Comment(s): marijuana use daily - Past Family History Mother Family Medical History: No Reported History Medications and Allergies Home Medications Medication Instructions Recorded Confirmed Type Acetaminophen Tab [Tylenol] 1,000 mg PO Q6H PRN 04/13/20 04/13/20 History Cyclobenzaprine [Flexeril] 10 mg PO TID PRN 04/13/20 04/13/20 History Gabapentin 300 mg PO TID PRN 04/13/20 04/13/20 History cefaDROXiL [Duricef] 500 mg PO BID 04/13/20 04/13/20 History Allergies Allergy/AdvReac Type Severity Reaction Status Date / Time No Known Allergies Allergy Verified 04/13/20 19:48 Physical Exam Vitals: Vital Signs Temp Pulse Pulse Resp BP BP Pulse Ox 04/14/20 07:47 99.2 F 100 20 158/70 96 04/14/20 02:52 98.6 F 106 H 144/73 98 04/13/20 22:00 99.4 F 110 H 18 144/81 93 L 04/13/20 21:50 98.5 F 115 H 18 142/96 96 04/13/20 21:49 98.5 F 115 H 04/13/20 21:18 102.3 F H 118 H 04/13/20 21:06 121 H 18 142/96 96 04/13/20 20:22 101.9 F H 128 H 20 140/97 96 04/13/20 19:50 124 H 18 146/95 97 04/13/20 18:33 99.6 F 118 H 18 135/78 98 Intake and Output 04/13/20 04/14/20 04/14/20 22:59 06:59 14:59 Other: Weight 102.058 kg PHYSICAL EXAM: VITAL SIGNS: As above GENERAL: Sitting up at side of bed, no acute distress HEENT: Conjunctivae normal. eyes normal. NECK: No JVD. No thyroid enlargement. No LNs CARDIOVASCULAR: S1, S2 regular.. No murmur RESPIRATION: Breath sounds diminished in the bases. No rhonchi or crackles. No bronchial breathing. ABDOMEN: Soft, nontender . No guarding. no masses palpable. No ascites, No hepatosplenomegaly.Bowel sounds heard. LEGS: No edema. no swelling PSYCHIATRY: Alert and oriented X3, mood and affect normal. NERVOUS SYSTEM: Cranial N 2-12 grossly normal. Moves all 4 limbs. No focal deficits. Strength and sensation grossly intact.. Skin: Mid lower back dressing with serosanguineous drainage, no rash , multiple tattoos. Joints: No active swelling. No inflammation. Lymphatic system. No LN neck axilla or groin. Microbiology 04/13/20 19:30 Blood Blood Culture Gram Stain - Preliminary 04/13/20 19:30 Blood Blood Culture - Final Results CBC & Chem 7: 04/14/20 06:27 04/13/20 19:49 Labs: Abnormal Lab Results - Last 24 Hours (Table) 04/13/20 04/13/20 04/13/20 Range/Units 19:41 19:49 20:22 WBC 13.5 H (3.8-10.6) k/uL Neutrophils # 11.6 H (1.3-7.7) k/uL Lymphocytes # (1.0-4.8) k/uL Sodium 135 L (137-145) mmol/L Glucose 104 H (74-99) mg/dL ALT 54 H (4-49) U/L Total Protein 8.6 H (6.3-8.2) g/dL Urine Blood Small H (Negative) Urine Mucus Rare H (None) /hpf 04/14/20 Range/Units 06:27 WBC (3.8-10.6) k/uL Neutrophils # 8.6 H (1.3-7.7) k/uL Lymphocytes # 0.9 L (1.0-4.8) k/uL Sodium (137-145) mmol/L Glucose (74-99) mg/dL ALT (4-49) U/L Total Protein (6.3-8.2) g/dL Urine Blood (Negative) Urine Mucus (None) /hpf Assessment and Plan Assessment: Sepsis secondary to postsurgical wound infection with Dehiscence,status post recent L5-S1 discectomy, possible abscess, CT pending. Hypertension, close monitoring, further recommendations to follow. Daily THC use Plan: Continue on current medication regime ,monitoring and symptomatic treatment. Lumbar CT pending. Blood Cultures pending. IV fluid hydration. Antibiotics as per ID. Close monitoring of renal function with repeat labs ordered for a.m. Protonix added for GI prophylaxis. I&D scheduled for today .Thank you Dr. Watters for the consult. The impression and plan of care has been dictated as directed. : I performed a history and examination of this patient, discussed the same with the dictator. I agree with the dictator's note ,documented as a scribe. Any additional findings or plans will be noted.
[2020-04-14] MEDS: HYDROmorphone 0.5 MG/0.5 ML SYRINGE IVP PRN (19:33)
--- NOTE | 2020-04-14 19:50 | P.PN ---
Progress Note - Text Progress Note Date: 04/14/20 Emergent cases keep bumping this case. It is becoming unsafe to do late and patient is stable at this time. Unfortunately, he has been NPO all day, but we will let him eat. I spoke to patient. While unhappy he understands and we will do case at 0700 sharp tomorrow AM.
[2020-04-15] MEDS: HYDROmorphone 1 MG/ML 1 ML SYRINGE IVP PRN (04:30)
[2020-04-15] MEDS: SODIUM CHLORIDE 0.9% 1,000 ML IV SCH ×3 (04:34→17:26)
--- NOTE | 2020-04-15 05:04 | CONS ---
CONSULTATION DATE OF SERVICE: 04/14/2020. REASON FOR CONSULTATION: 1. Lumbar incision infection. 2. Bacteremia. HISTORY OF PRESENT ILLNESS: The patient is a 34-year-old male, in this patient who is status post an L5- S1 micro discectomy done on March 24, 2020. The patient did well postoperatively. Apparently, the patient noticed to have slight dehiscence of his wound about a week ago. There was no purulent drainage at that point and the patient was given course of and Duricef. The patient is currently taking. However the patient noticed to having more pain to the lumbar/lower back area describing it to be throbbing to dull aching intensity almost 10/10 in severity. No radiation to the back. No other bladder problem. The patient started having a fever last evening that concerned him and he presented to the hospital for further evaluation. On presentation to hospital the patient did have fever of 102.3 degrees Fahrenheit. The patient was tachycardic. The patient noticed to have a white count of 13.5. Kidney function was normal. . Broussard PCR was negative. The patient did have blood cultures come back positive. Patient started on cefazolin. Infectious Disease was consulted for further management of antibiotic therapy. The patient also had a CT of the lumbosacral spine did not show any evidence of drainable abscess. REVIEW OF SYSTEMS: Positive points have been mentioned in HPI. Rest of the systems are negative. PAST MEDICAL HISTORY: Back pain secondary to PAST SURGICAL HISTORY: Left inguinal hernia surgery, and microdiscectomy L5-S1 March 24, 2020. SOCIAL HISTORY: The patient denies smoking, rarely drinks. No drug use. FAMILY HISTORY: No pertinent findings noticed. ALLERGIES: No known drug allergies. MEDICATIONS: The patient is currently on cefazolin 2 grams q.8 hours. He is on Tylenol, Cutler, Dilaudid, Narcan, Zofran, Protonix, IV fluid. PHYSICAL EXAMINATION: Blood pressure is 164/72 with a pulse of 109. Temperature 100.3, T-max 102. He is 96% on room air. General description is a young male lying in bed in no distress. No tachypnea or accessory muscle of respiration use. HEENT: Examination shows no pallor or scleral icterus. Oral mucous membrane is dry. No pharyngeal erythema or thrush. Neck: Trachea central. No thyromegaly. Lungs: Unlabored breathing. Clear to auscultation anteriorly. No wheeze or crackles. Heart S1, S2. Regular rate and rhythm. ABDOMEN: Soft, no tenderness. No guarding. No rigidity. Extremities: No edema of the feet. Examination of lumbar surgical area did shows nonhealing wound, but no significant surrounding redness or any purulent drainage. Neurological: Patient is awake, alert, oriented. Mood and affect normal. LABS: Hemoglobin is 14.1, white count 13.5, BUN of 17, creatinine 0.91. Blood culture with Gram-positive cocci in clusters. DIAGNOSTIC IMPRESSION AND PLAN: Patient admitted to the hospital with sepsis in this patient who did have a fever, elevated white count, tachycardia, source is likely lumbar surgery infection in this patient who is status post microdiscectomy on March 24 and will need to cover for the MRSA/MSSA to be the likely pathogen. PLAN: 1. Blood culture will be repeated to document clearance of bacteremia. 2. Discontinue cefazolin. 3. Start the patient on vancomycin pharmacy to dose target of 15. 4. We will follow on clinical condition and culture to further adjust medication if needed. Thank you for this consultation. Will follow this patient with you. MMODL / IJN: [id number] /
[2020-04-15] MEDS ORDERED: IV FLUID CONTINUATION 900 ML IV ONE (06:34)
[2020-04-15] MEDS ORDERED: ONDANSETRON 4 MG/2 ML VIAL IVP ONE (06:52)
[2020-04-15] MEDS ORDERED: DEXAMETHASONE SOD PHOSPHATE 4 MG/ML 1 ML VIAL IV ONE (06:53)
--- NOTE | 2020-04-15 07:00 | P.PN ---
Subjective Progress Note Date: 04/15/20 Principal diagnosis: Lumbar wound dehiscence Pt s/e this AM doing well. No other issues. Denies any fevers overnight. States pain in his back. States some drainage. Denies any leg syptoms. No numbness/tingling. No weakenss. Now bowel bladder issues. No CONTRERAS, SOB, CP at this time. Objective - Vital Signs Vital signs: Vital Signs Temp 98.4 F 04/15/20 06:36 Pulse 103 H 04/15/20 06:36 Resp 16 04/15/20 06:36 BP 146/88 04/15/20 06:36 Pulse Ox 96 04/15/20 06:36 Intake & Output 04/14/20 04/14/20 04/15/20 06:59 18:59 06:59 Intake Total 1590 Balance 1590 Weight 102.058 kg Intake: IV 1590 Sodium Chloride 0.9% 1, 1040 000 ml @ 130 mls/hr IV . Q7H42M [facility] Rx#:[id number] Vancomycin 1,750 mg In 500 Sodium Chloride 0.9% 500 ml 500 ml @ 167 mls/hr IVPB Q8H [facility] Rx#: [id number] ceFAZolin 2 gm In Sodium 50 Chloride 0.9% 50 ml @ 100 mls/hr IVPB Q8H [facility] Rx#: [id number] - Exam VSS AOX3 NAD Incisional dehiscence towards the bottom. No purulent drainage can be seen at this time. No erythema. 5/5 B/L LE DF/PF/EHL/FHL/KF/KE/HF 5/5 UE B/L ALL major muscle groups 2/4 DTR all b/l 2/4 pulses distal SILT L2-S1 NEg hoffmans Neg babinski Neg clonus bilateral FROM all major joints. - Labs CBC & Chem 7: 04/14/20 06:27 04/13/20 19:49 Labs: Microbiology - Last 24 Hours (Table) 04/13/20 19:45 Blood Culture Gram Stain - Preliminary Blood 04/13/20 19:45 Blood Culture - Final Blood 04/13/20 19:30 Blood Culture Gram Stain - Preliminary Blood 04/13/20 19:30 Blood Culture - Final Blood Assessment and Plan Assessment: 34-year-old male status post L5-S1 discectomy 3 weeks out with superficial skin dehiscence and continued drainage Plan: -Appreciate ID consult -Pain control: Adequate at this time -Aggressive ambulation protocol. OOB with all meals. OOB or in chair 4-5x daily. -PT/OT -TEDs, SCDs, mechanical ppx. OK for heparin today. Early ambulation is best. -GI ppx. -CT of the lumbar spine pending without -Trend labs. -Nothing by mouth -OR today for irrigation debridement and revision closure of lumbar spine wound Spine Surgery Risk Review Jabari Alanis is a 4-year-old male presenting for evaluation of to need back pa in drainage from his wound and fever. It was my pleasure to have seen and examined Jabari Alanis. In our visit today we have had a chance to go over subjective complaints, physical examination findings and treatments including the natural course history without intervention and various interventional options. The patients imaging demonstrates previous L5-S1 disc herniation status post microdiscectomy. On physical exam, Jabari Alanis demonstrates drainage from his lumbar wound with pain and fever. I have explained to the patient that as their condition progresses it will cause further neurological deficits and eventual paralysis. Based on the patients imaging, physical exam, and the rapid progression and disabling nature of their symptoms, at this time I recommend surgery in the form or a: Irrigation and debridement of lumbar wound with revision closure. I discussed the risk and be nefits of this procedure at length with Jabari Alanis. The patient agreed to considered pursuing the procedure abovementioned. Prior to surgery, she should follow up with her PCP (Cardio, ID, IM etc) for clearance. Questions were invited and answered, and the patient wishes to proceed as outlined below. Currently, I am recommendin. Irrigation and debridement of lumbar wound with revision closure and possible antibiotic bead placement 2. Follow up with PCP for surgical clearance 3. Review of surgical risks and benefits as well as an educational packet on the proposed surgical procedure. Risks: All surgical procedures come with inherent risks, including those related to positioning, anesthesia, intraoperative findings, and postoperative complications. It is important to understand that surgery does not come with any guarantee of a successful outcome as complications and adverse events are always possible. The patient was given a handout in office today discussing the surgical procedure and risks associated with the intervention, both of which were discussed with the patient. These risks include but are not limited to the following: * Experiencing same, different or even worse symptoms in back, neck, arms, or legs compared to before surgery. * Requiring further surgery or other forms of treatment presently or at some time in the future at same or other levels of the intended spine surgery. * On an extreme but fortunately relatively rare basis severe complication such as blindness, stroke, heart attack, temporary and/or permanent nerve injury, paralysis, coma, or may occur, sometimes without known explanation. * Surgical complications may include but are not limited to risk of infection, fluid accumulation in the surgical dissection site, including a seroma or hematoma, that requires additional surgery, wound drainage, bleeding, new numbness or weakness, vision changes/loss, spinal fluid leakage, non-healing and/or infected incision, headaches, difficulty or inability to swallow, hoarseness, hemopneumothorax, pneumothorax, impotence, retrograde ejaculation, vaginal dryness; injury to nerves, spinal cord, blood vessels, lymphatics or other vital organs (i.e., bowel injury, injury to the great vessels); heterotopic bone formation; complications related to the hardware such as screws, rods, cages including misplaced hardware, device failure, instrumentation at the wrong spine level, hardware fracture/breakage, or hardware loosening; vertebral failure of the spinal column above or below the newly placed hardware; retained surgical instrumentations or devices and the need for further surgery. * Medical risks of the planned spine surgery include but are not limited to generalized Infections to the whole body or local areas outside of the surgical site (sepsis), heart attack, bleeding, anaphylaxis, meningitis, seizure, epilepsy, hearing loss, burn claudio, laceration of the head or other areas of the body, bruising, hypersensitivity of the skin, bladder over d istension; allergic reaction; shoulder injury related to positioning; fat, blood and air clots to other areas of the body like heart, lungs, brain; failure of internal organs such as lungs, kidneys, liver and excessive bleeding. If blood transfusions are necessary, note that transfusions may cause intolerance reactions such as anaphylaxis or other complex reactions. * Despite best efforts, the results of spine surgery might not heal in terms of bone, soft tissues such as skin, fascia, ligaments, and joints. Additionally, in order to achieve best possible results, spine surgery may be carried out beyond the initially planned levels and involve decompression, fusion including insertion of hardware at levels other than the original intended area of surgical interest change some portions of the procedure in order to ensure the best possible outcomes. * With spine surgery and spinal fusion, there are different off label uses of instrumentation (devices, implants and hardware) as well as biological substances (bone morphogenic proteins, demineralized bone matrix) as well as using extra bone from allograft sources (i.e. cadaver bone) or autograft (iliac crest bone, ribs, or the spine itself). The patient has been given information about these practices and their inherent risks and benefits. * Formerly [facility] is an educational center that serves as a training facility for neurosurgical and orthopedic spine residents and fellows. Residents are physicians who are completing their surgical intensive training following medical school. They assist in the operating room with direct supervision of the attending surgeons. [place] are surgeons who have completed their training and eligible for board certification. They have opted for an elective year of more specialized training in their field. They assist in the operating room under the supervision of the attending surgeons. Physician assistants are medically trained surgical providers who function in the outpatient, inpatient, and operating room setting under the direct supervision of the attending surgeon. * Formerly [facility] has multiple operating rooms with single and overlapping rooms running daily. They currently function under the required guidelines as produced by the [facility] Finance Committee with regards to the overlapping rooms and will continue to comply with changes to this policy as they occur. The requirements include and are complied with as follows: (1) the critical portions of the overlapping rooms will not occur at the same time, (2) the attending physician will be physically present during the critical portions of the procedure and immediately available during the entire case, and (3) a back-up attending is designated should the primary attending not be immediately available. The patient has had a chance to review all the listed information, has been given print outs detailing this information, and has had all his/her questions answered to their satisfaction. It was my pleasure to have seen and examined Jabari Alanis. In our visit today we have had a chance to go over my understanding of our patient's current condition, the natural course history without intervention and various interventional options. Questions were invited and answered, and the patient wishes to proceed as outlined above. I have seen and examined the patient for 25 minutes and we have spent more than 50% of the time in repeat and detailed counseling about the patient's condition, its natural course history with out and as much as can be predicted with surgery and re-review of various surgical treatment options. In conclusion, Jabari Alanis and his requested we proceed with the above suggested surgery and are willing to accept risks and limitations of the suggested surgery as nature of the disease process and our best attempts at treatment for the condition. Thank you again for allowing us to be part of your patient's care. Please don't hesitate to contact me if you have any further questions. Signed and authenticated by: [facility] [address], [address] [address]
[2020-04-15] MEDS ORDERED: PROPOFOL 10 MG/ML 20 ML VIAL IV ONE (07:01)
[2020-04-15] MEDS ORDERED: SUCCINYLCHOLINE CHLORIDE 100 MG/5 ML SYR IV ONE (07:01)
[2020-04-15] MEDS ORDERED: fentaNYL (PF) 50 MCG/ML 2 ML AMP ONE (07:01)
[2020-04-15] MEDS ORDERED: MIDAZOLAM 2 MG/2 ML VIAL ONE (07:01)
[2020-04-15] MEDS ORDERED: HYDROmorphone (PF) 1 MG/ML ONE (07:01)
[2020-04-15] MEDS ORDERED: LABETALOL 5 MG/ML VIAL MDV ONE (07:01)
[2020-04-15] MEDS ORDERED: SODIUM CHLORIDE 0.9% 50 ML with ceFAZolin 2,000 MG IV ONE ×2 (07:01)
[2020-04-15] MEDS ORDERED: VANCOMYCIN 1,000 MG VIAL MISCELLANE ONE (07:47)
[2020-04-15] MEDS ORDERED: ceFAZolin 3,000 MG in SODIUM CHLORIDE 0.9% IRRIGATIO 3,000 ML IRRIGATION ONE ×5 (07:49→07:50)
[2020-04-15] MEDS: VANCOMYCIN 1,750 MG in SODIUM CHLORIDE 0.9% 500 ML 500 ML IVPB SCH ×3 (08:21→21:58)
[2020-04-15] MEDS ORDERED: LACTATED RINGERS 1,000 ML IV ONE (08:37)
[2020-04-15] MEDS: HYDROmorphone 0.5 MG/0.5 ML SYRINGE IVP ONE ×2 (09:00→09:17)
[2020-04-15] MEDS: PANTOPRAZOLE 40 MG/10 ML VIAL IV SCH (10:00)
[2020-04-15 10:15] LABS: Basophils # (A) 0.1 k/uL (0-0.2); Basophils % (A) 0 %; Eosinophils # (A) 0.1 k/uL (0-0.7); Eosinophils % (A) 1 %; HCT 41.5 % (39.0-53.0); HGB 13.9 gm/dL (13.0-17.5); Lymphocytes # (A) 0.6 k/uL (1.0-4.8); Lymphocytes % (A) 6 %; MCH 29.7 pg (25.0-35.0); MCHC 33.6 g/dL (31.0-37.0); MCV 88.4 fL (80.0-100.0); Mean Platelet Volume 6.4; Monocytes # (A) 0.4 k/uL (0-1.0); Monocytes % (A) 3 %; Neutrophils # (A) 9.8 k/uL (1.3-7.7); Neutrophils % (A) 89 %; Platelet Count 290 k/uL (150-450); RBC 4.69 m/uL (4.30-5.90)
[2020-04-15 11:32] LABS: Erythrocyte Sedimentation Rate 28 mm/hr (0-15)
--- NOTE | 2020-04-15 12:11 | P.PN ---
Subjective Progress Note Date: 04/15/20 This is a 34-year-old gentleman with history of daily marijuana use, recent microdiscectomy L5-S1 3 weeks ago presenting with fevers, weakness, shakiness, incisional drainage. Apparently patient had removed the dressing prematurely developed dehiscence with serosanguineous drainage. Placed on prophylactic antibiotics but symptoms worsened in addition to drainage from surgical wound. Patient is scheduled for I&D today with orthopedic surgery. Denies chest pain, palpitations or shortness of breath. Denies lightheadedness dizziness or focal deficits. T-max 102.3, blood cultures obtained, pending. Received Rocephin followed by vancomycin. Chest x-ray reporting normal chest, no change. EKG sinus tachycardia, 04/15/2020 no overnight events. T-max 100.7, WBC 11. Lumbosacral spine CT reported air present within the posterior paraspinal soft tissues extending from L3 to L5 with no evidence of abscess formation, moderate right foraminal narrowing L5 to S1, post right hemilaminectomy L5. Preliminary blood cultures reporting staphylococcus species/gram-positive cocci in groups/gram-positive cocci in clusters. Maintained on vancomycin as per ID. renal function pending. Status post I&D, tolerated procedure well. Denies chest pain, palpitations or shortness of breath. Denies lightheadedness dizziness or focal deficits. Objective - Vital Signs Vital signs: Vital Signs Temp 97.5 F L 04/15/20 08:49 Pulse 100 04/15/20 09:30 Resp 16 04/15/20 09:30 BP 146/65 04/15/20 09:30 Pulse Ox 94 L 04/15/20 09:30 Intake & Output 04/14/20 04/15/20 04/15/20 18:59 06:59 18:59 Intake Total 1590 1053 Output Total 50 Balance 1590 1003 Weight 102.058 kg Intake: IV 1590 1053 Sodium Chloride 0.9% 1, 1040 000 ml @ 130 mls/hr IV . Q7H42M [facility] Rx#:[id number] Vancomycin 1,750 mg In 500 Sodium Chloride 0.9% 500 ml 500 ml @ 167 mls/hr IVPB Q8H [facility] Rx#: [id number] ceFAZolin 2 gm In Sodium 50 Chloride 0.9% 50 ml @ 100 mls/hr IVPB Q8H [facility] Rx#: [id number] Output: Estimated Blood Loss 50 - Exam PHYSICAL EXAM: VITAL SIGNS: As above GENERAL: Sitting up at side of bed, no acute distress HEENT: Conjunctivae normal. eyes normal. NECK: No JVD. No thyroid enlargement. CARDIOVASCULAR: S1, S2 regular. No murmur RESPIRATION: Breath sounds diminished in the bases. No rhonchi or crackles. No bronchial breathing. ABDOMEN: Soft, nontender . No guarding. no masses palpable. Bowel sounds heard. LEGS: No edema. no swelling. PSYCHIATRY: Alert and oriented X3, mood and affect normal. NERVOUS SYSTEM: Cranial N 2-12 grossly normal. Moves all 4 limbs. No focal deficits. Strength and sensation grossly intact.. Skin: Mid lower back dressing clean, dry and intact, no rash. Microbiology 04/13/20 19:45 Blood Blood Culture Gram Stain - Preliminary 04/13/20 19:45 Blood Blood Culture - Preliminary Staphylococcus species 04/13/20 19:30 Blood Blood Culture Gram Stain - Preliminary 04/13/20 19:30 Blood Blood Culture - Preliminary Staphylococcus species 04/13/20 19:45 Blood Blood Culture - Final 04/13/20 19:30 Blood Blood Culture - Final - Labs CBC & Chem 7: 04/15/20 09:53 04/13/20 19:49 Labs: Abnormal Lab Results - Last 24 Hours (Table) 04/15/20 Range/Units 09:53 WBC 11.0 H (3.8-10.6) k/uL Neutrophils # 9.8 H (1.3-7.7) k/uL Lymphocytes # 0.6 L (1.0-4.8) k/uL ESR 28 H (0-15) mm/hr Microbiology - Last 24 Hours (Table) 04/13/20 19:45 Blood Culture Gram Stain - Preliminary Blood Blood Culture - Preliminary Staphylococcus species 04/13/20 19:30 Blood Culture Gram Stain - Preliminary Blood Blood Culture - Preliminary Staphylococcus species 04/13/20 19:45 Blood Culture - Final Blood 04/13/20 19:30 Blood Culture - Final Blood Assessment and Plan Assessment: Sepsis secondary to postsurgical wound infection with Dehiscence,status post r ecent L5-S1 discectomy, no abscess reported per CT. preliminary cultures reporting staphylococcus species. Status post I&D. Hypertension, close monitoring, further recommendations to follow. Daily THC use Plan: Continue on current medication regime ,monitoring and symptomatic treatment. Final Blood Cultures pending. Vancomycin as per ID. Close monitoring of renal function with repeat labs ordered for a.m. The impression and plan of care has been dictated as directed. : I performed a history and examination of this patient, discussed the same with the dictator. I agree with the dictator's note ,documented as a scribe. Any additional findings or plans will be noted.
--- NOTE | 2020-04-15 13:41 | P.OP ---
Date of Procedure: 04/15/20 Preoperative Diagnosis: Lumbar Wound Dehiscence Postoperative Diagnosis: Same Procedure(s) Performed: 1. Exploration of laminotomy 2. Incision with irrigation and debridement of skin, soft tissue, muscles and bone of the lumbar spine using the following methods: -Knife used on skin for debridement of necrotic skin -Curette used on soft tissues for the removbal of necrotic fat -Rongure and kerrisons used on muscle and bone for debridment of necrotic tissues 3. Hemilaminotomy of L5 on the RIGHT for further visualization and decompression of scar tissues. 4. Complex closure of lumbar wound due to facial dehiscence and suture failure 5 cm x 3 cm 4 cm Implants: None Anesthesia: ERIS Surgeon: Bryn Watters Estimated Blood Loss (ml): 50 IV fluids (ml): 900 Urine output (ml): 0 Pathology: other (x2 cultures; +tissue) Condition: stable Disposition: PACU Indications for Procedure: 34-year-old male who is 3 weeks status post L5-S1 microdiscectomy presents to the ED complaining of fever of 103 chills low back pain and continued drainage from his wound. The patient was seen in office a week ago and had removed the ex-O Bart tape prematurely which caused mild superficial dehiscence to his wound however this was amendable with Steri-Strips there was no purulence and the patient was afebrile at this time. He was placed on a prophylactic course of Duricef. The patient states that he was doing okay after this but then took a turn the last couple of days with fever chills increased pain in his back and continued discharge from his back. He denies any headache shortness of breath or chest pain at this time. He states no leg pain at this time. He states he has been up and about and walking without any issues. He denies any other symptoms currently. Operative Findings: No evidence of infection seen. There was skin and facial dehiscence at the caudal end of the incision. The facial sutures had broken deep and there was facial dehiscence due to this. There was no purulence seen. There was no drainage. There was no CSF leak. Description of Procedure: The patient was seen and examined in the preoperative area. All preoperative protocols were followed. Informed consent was obtained risks and benefits of the procedure were discussed at length. Risks including bleeding infection damage to the surrounding tissue and risk of reoperation were discussed with the patient. Risk of anesthesia up to and including was a discussed with the patient. These are outlined in the risk review. They were willing to accept these risks and all of the risks of surgery. The patient was given a weight- based dose of antibiotics in the form of 2 g of Ancef IVPB 1. The patient is also on vancomycin. The patient was seen and evaluated by the anesthesia team who deemed them fit for surgery. The site was marked, the patient was willing to proceed with the procedure. The patient was transferred to the operative suite by the Department of anesthesia. They were then drifted off to sleep by the department anesthesia general endotracheal intubation. The patient tolerated this well. Once confirmation of lines and ventilation the patient was transferred to a prone Alexis Ferny table very carefully. All bony prominences including wrists, elbows, axilla, chest, hips, and thighs, and feet were padded very well. Special attention was paid to the genitalia and these were padded accordingly. SCDs were placed on bilateral lower extremities and were connected. Arms were well padded and placed on arm boards up and out in the 90/90 position. Once in position, again we confirmed good ventilation capabilities and that lines were running appropriately. The patient's lumbar spine was then exposed. 1010s were placed outlining the incision site. Standard alcohol was used to clean the incision site and allowed to dry. C-arm was used to biomark the patient and confirm level for incision which was marked with a skin marker. Operative briefing was performed with all teams and everyone in agreement to proceed. The patient was then prepped and draped in a normal sterile fashion. Timeout was then performed and all parties were in agreement with the procedure to be performed. Incision was then made over the previous lumbar wound. There is noted to be decreased dehiscence distally within the wound. Superficial cultures were then taken. There is no purulence seen in the superficial layers however there was dehiscence in this area and the sutures had failed. As we take took the dissection further down exposing the entire previous wound there was noted in the fascia of the distal portion that the sutures had failed and that there was fascial dehiscence at this level. There is no purulence noted in this area. Dissection was taken further down the right side of the lamina to reveal the laminotomy which was still intact. There is minimal scar tissue formation in this area. Deep cultures were then taken. The small motor scar tissue was removed the dura was inspected along with the nerve roots as well as the disc space in this area. There was no purulence seen in any of these regions as well. Retractor was then placed for better visualization. The bone was scraped with a 20 curet. Kerrison rongeur was used to widen the laminotomy for further inspection and for visualization to make sure there was no epidural collection of fluid. The bone was then sent for inspection pathology. Further disc space material was pushed back into the disc space. The nerve was freed the foramen was free there is no strenuous or extruding portions. There is no purulence seen. While protecting the dura and nerve root the disc space was again irrigated out with normal sterile saline no purulence was seen. We then again protected the dura and 6 L of normal sterile saline were Pulsavac through the wound. Irricept was then placed within the wound and curettes were used to scrape the bone as well as the muscle and soft tissue to remove any necrotic fat muscle or bone. Frederick was used to remove previous sutures as well as necrotic fat. After the Irricept was placed another 3 L of normal sterile saline was run through the wound for irrigation purposes. The dura was again inspected there was no CSF leak there was no continuous bleeding there was no purulence seen. Surgicel was placed over the dura. The fascial edges were then cleaned with a curette as well as a Rominger. The retractor was removed. The fascia was then reapproximated with a complex layered closure with 0 PDS in a [id number] fashion the edges approximated well. This was then oversewn with a unidirectional strata fix locking stitch. This was a watertight closure. A continued complex closure In the subcu region and the edges were again freshened with a curette and a liter of normal sterile saline was run through the area again. An O PDS was placed deep within the subcutaneous tissue for reapprox imation. Vancomycin was placed in the deep wound as well as a superficial wound. The remainder of the subcu tissue was then closed with 0 PDS followed by 2-0 PDS. Skin was closed with 2-0 nylon in a horizontal mattress fashion. Skin sharlene were then also placed in the skin for reinforcement and to decrease the tension on the skin. The wound was then cleaned and dressed sterilely with sterile Telfa 4 x 4's and a Tegaderm. The patient was transferred back to her hospital bed atraumatically. Drain continued to hold suction and were in good position. Patient was then awakened and extubated by the department of anesthesia having tolerated the procedure very well with no complications. She was transferred to the postoperative care unit in stable condition.
[2020-04-15] MEDS: HYDROcodone/APAP 5-325MG 1 EACH TAB PO PRN ×3 (13:59→21:58)
[2020-04-15 18:05] LABS: African American GFR (CKD) 134.1 (60.0-200.0); Anion Gap 8.5 mmol/L (4.00-12.00); BUN/Creat Ratio 16.25 Ratio (12.00-20.00); C Reactive Protein 15.5 mg/dL (0.0-0.8); Calcium 8.3 mg/dL (8.7-10.3); Carbon Dioxide 24.5 mmol/L (21.6-31.8); Non-African American GFR(CKD) 115.7 (60.0-200.0); Potassium 4.3 mmol/L (3.5-5.5)
[2020-04-15] MEDS: ONDANSETRON 4 MG/2 ML VIAL IVP PRN (18:08)
[2020-04-15] MEDS: bisacodyL 5 MG TABLET.DR PO PRN (18:13)
--- NOTE | 2020-04-15 23:20 | PN ---
PROGRESS NOTE REASON FOR FOLLOWUP: Lumbar surgical site infection with staphylococcal bacteremia. INTERVAL HISTORY: The patient is currently afebrile. The patient may be taken to the OR status post debridement of the lumbar spine wound and secondary closure. The patient denies any chest pain. No shortness of breath or cough. Back pain is currently controlled. No nausea, vomiting or diarrhea. PHYSICAL EXAMINATION: Blood pressure 152/74 with a pulse of 69, temperature 98.6. He is 96% on room air. General description is a middle-aged male lying in bed in no distress. Respiratory system: Unlabored breathing, clear to auscultation anteriorly. Heart S1, S2. Regular rate and rhythm. Abdomen soft. No tenderness. LABS: Hemoglobin 13.9, white count 11.3, BUN of 13, creatinine 0.8. DIAGNOSTIC IMPRESSION AND PLAN: Patient with lumbosacral surgical infection, patient with streptococcal bacteremia, status post debridement. Patient is covered with vancomycin to continue. Waiting for the blood culture to be negative before placing a PICC line for outpatient antibiotic therapy. His questions and concerns were answered. MMODL / IJN: [id number] /
[2020-04-16] MEDS: HYDROcodone/APAP 5-325MG 1 EACH TAB PO PRN ×3 (02:10→09:50)
[2020-04-16] MEDS ORDERED: VANCOMYCIN TROUGH DUE 1 EACH MISC MISCELLANE ONE (06:00)
[2020-04-16] MEDS: SODIUM CHLORIDE 0.9% 1,000 ML IV SCH ×2 (06:09→15:34)
[2020-04-16 07:45] LABS: Basophils # (A) 0.1 k/uL (0-0.2); Basophils % (A) 1 %; Eosinophils # (A) 0.1 k/uL (0-0.7); Eosinophils % (A) 1 %; HCT 39.7 % (39.0-53.0); HGB 13.3 gm/dL (13.0-17.5); Lymphocytes # (A) 1.2 k/uL (1.0-4.8); Lymphocytes % (A) 13 %; MCH 29.4 pg (25.0-35.0); MCHC 33.4 g/dL (31.0-37.0); Mean Platelet Volume 6.6; Monocytes # (A) 0.5 k/uL (0-1.0); Monocytes % (A) 5 %; Neutrophils # (A) 7.8 k/uL (1.3-7.7); Neutrophils % (A) 79 %; Platelet Count 293 k/uL (150-450); RBC 4.51 m/uL (4.30-5.90); RDW 12.7 % (11.5-15.5); WBC 9.9 k/uL (3.8-10.6)
[2020-04-16] MEDS: bisacodyL 5 MG TABLET.DR PO PRN (09:49)
[2020-04-16] MEDS: VANCOMYCIN 1,750 MG in SODIUM CHLORIDE 0.9% 500 ML 500 ML IVPB SCH (09:49)
[2020-04-16] MEDS: PANTOPRAZOLE 40 MG TABLET PO SCH (09:50)
[2020-04-16 10:58] LABS: African American GFR (CKD) 134.1 (60.0-200.0); BUN/Creat Ratio 12.5 Ratio (12.00-20.00); Calcium 8.3 mg/dL (8.7-10.3); Non-African American GFR(CKD) 115.7 (60.0-200.0); Potassium 4.2 mmol/L (3.5-5.5)
--- NOTE | 2020-04-16 12:32 | P.PN ---
Subjective Progress Note Date: 04/16/20 Principal diagnosis: Lumbar wound dehiscence Pt s/e. Doing well has been up and about. Still has back pain but better. Currently getting vancomycin and experiences Red Man syndrome with it so he is uncomfortable. Denies any LE pain or weakness. Denies any bowel or bladder i ssues. No f/c/sob/cp at this time. Objective - Vital Signs Vital signs: Vital Signs Temp 99.9 F H 04/16/20 07:44 Pulse 102 H 04/16/20 08:30 Resp 16 04/16/20 08:30 BP 159/77 04/16/20 07:44 Pulse Ox 95 04/16/20 07:44 Intake & Output 04/15/20 04/16/20 04/16/20 18:59 06:59 18:59 Intake Total 2643 Output Total 50 Balance 2593 Weight 102.058 kg Intake: IV 2643 Sodium Chloride 0.9% 1, 1040 000 ml @ 130 mls/hr IV . Q7H42M [facility] Rx#:[id number] Vancomycin 1,750 mg In 500 Sodium Chloride 0.9% 500 ml 500 ml @ 167 mls/hr IVPB Q8H [facility] Rx#: [id number] ceFAZolin 2 gm In Sodium 50 Chloride 0.9% 50 ml @ 100 mls/hr IVPB Q8H [facility] Rx#: [id number] Output: Estimated Blood Loss 50 Other: Voiding Method Toilet Toilet - Exam VSS AOX3 NAD Incision is CDI. Stitiches and sharlene in place. Dressing CDI. No EEE. Mild ttp. 5/5 B/L LE DF/PF/EHL/FHL/KF/KE/HF 5/5 UE B/L ALL major muscle groups 2/4 DTR all b/l 2/4 pulses distal SILT L2-S1 NEg hoffmans Neg babinski Neg clonus bilateral FROM all major joints. - Labs CBC & Chem 7: 04/16/20 07:11 04/16/20 07:11 Labs: Abnormal Lab Results - Last 24 Hours (Table) 04/15/20 04/16/20 04/16/20 Range/Units 09:53 07:11 07:11 Neutrophils # 7.8 H (1.3-7.7) k/uL Sodium 133 L 134 L (135-145) mmol/L Glucose 149 H 115 H (70-110) mg/dL Calcium 8.3 L 8.3 L (8.7-10.3) mg/dL C-Reactive Protein 15.5 H (0.0-0.8) mg/dL Microbiology - Last 24 Hours (Table) 04/13/20 19:45 Blood Culture Gram Stain - Final Blood Blood Culture - Preliminary Staphylococcus intermedius 04/13/20 19:30 Blood Culture Gram Stain - Final Blood Blood Culture - Preliminary Staphylococcus intermedius 04/15/20 09:53 Blood Culture Gram Stain - Preliminary Blood 04/15/20 09:53 Blood Culture - Final Blood 04/15/20 08:06 Gram Stain - Preliminary Back Wound Culture - Preliminary 04/15/20 08:06 Gram Stain - Preliminary Back Tissue Culture - Preliminary 04/15/20 08:06 Gram Stain - Preliminary Back Wound Culture - Preliminary 04/15/20 08:06 Gram Stain - Preliminary Back Wound Culture - Preliminary 04/15/20 08:06 Gram Stain - Preliminary Back Wound Culture - Preliminary 04/15/20 08:06 Anaerobic Culture - Preliminary Back 04/15/20 08:06 Anaerobic Culture - Preliminary Back 04/15/20 08:06 Anaerobic Culture - Preliminary Back 04/15/20 08:06 Anaerobic Culture - Preliminary Back 04/15/20 08:06 Anaerobic Culture - Preliminary Back 04/14/20 15:36 Blood Culture - Preliminary Blood No Growth after 24 hours Assessment and Plan Assessment: 34-year-old male status post L5-S1 discectomy 3 weeks out with superficial skin dehiscence and continued drainage Post op Day 1 from I&D with revision complex closure. Plan: -Appreciate medicine management. -Pain control: Adequate at this time -Aggressive ambulation protocol. OOB with all meals. OOB or in chair 4-5x daily. -PT/OT -TEDs, SCDs, mechanical ppx. OK for heparin today. Early ambulation is best. -GI ppx. -Further imaging needed at this time -ID recommendations for IV antibiotics. Await negative blood cultures for PICC line. -Trend labs. -Dispo: Home once stable antibiotic recommendations and PICC line in place
--- NOTE | 2020-04-16 12:46 | P.PN ---
Subjective Progress Note Date: 04/16/20 This is a 34-year-old gentleman with history of daily marijuana use, recent microdiscectomy L5-S1 3 weeks ago presenting with fevers, weakness, shakiness, incisional drainage. Apparently patient had removed the dressing prematurely developed dehiscence with serosanguineous drainage. Placed on prophylactic antibiotics but symptoms worsened in addition to drainage from surgical wound. Patient is scheduled for I&D today with orthopedic surgery. Denies chest pain, palpitations or shortness of breath. Denies lightheadedness dizziness or focal deficits. T-max 102.3, blood cultures obtained, pending. Received Rocephin followed by vancomycin. Chest x-ray reporting normal chest, no change. EKG sinus tachycardia, 04/15/2020 no overnight events. T-max 100.7, WBC 11. Lumbosacral spine CT reported air present within the posterior paraspinal soft tissues extending from L3 to L5 with no evidence of abscess formation, moderate right foraminal narrowing L5 to S1, post right hemilaminectomy L5. Preliminary blood cultures reporting staphylococcus species/gram-positive cocci in groups/gram-positive cocci in clusters. Maintained on vancomycin as per ID. renal function pending. Status post I&D, tolerated procedure well. Denies chest pain, palpitations or shortness of breath. Denies lightheadedness dizziness or focal deficits. 04/16/2020 status post I&D of yesterday. Complains of nausea and pain throughout the night. Pain better controlled this morning. Nausea resolved, consuming 100% of breakfast. T-max 100.1, normal WBC . Repeat blood culture from 04/15 reporting gram-positive cocci. Maintained on vancomycin, renal function within normal limits. Ambulating to and from bathroom, tolerated exertion well. Denies lightheadedness, dizziness or focal deficits. Denies lower extremity weakness or difficulty ambulating. Complains of constipation. Denies chest pain, palpitations or shortness of breath. Objective - Vital Signs Vital signs: Vital Signs Temp 99.9 F H 04/16/20 07:44 Pulse 102 H 04/16/20 07:44 Resp 16 04/16/20 07:44 BP 159/77 04/16/20 07:44 Pulse Ox 95 04/16/20 07:44 Intake & Output 04/15/20 04/16/2021 18:59 06:59 18:59 Intake Total 2643 Output Total 50 Balance 2593 Weight 102.058 kg Intake: IV 2643 Sodium Chloride 0.9% 1, 1040 000 ml @ 130 mls/hr IV . Q7H42M [facility] Rx#:[id number] Vancomycin 1,750 mg In 500 Sodium Chloride 0.9% 500 ml 500 ml @ 167 mls/hr IVPB Q8H [facility] Rx#: [id number] ceFAZolin 2 gm In Sodium 50 Chloride 0.9% 50 ml @ 100 mls/hr IVPB Q8H [facility] Rx#: [id number] Output: Estimated Blood Loss 50 Other: Voiding Method Toilet - Exam PHYSICAL EXAM: VITAL SIGNS: As above GENERAL: Sitting up in bed, no acute distress HEENT: Conjunctivae normal. eyes normal. NECK: No JVD. No thyroid enlargement. CARDIOVASCULAR: S1, S2 regular. No murmur RESPIRATION: Breath sounds diminished in the bases. No rhonchi or crackles. No wheezing. ABDOMEN: Soft, nontender . No guarding. no masses palpable. Positive bowel sounds. LEGS: No edema. no swelling. PSYCHIATRY: Alert and oriented X3, mood and affect normal. NERVOUS SYSTEM: Cranial N 2-12 grossly normal. Moves all 4 limbs. No focal deficits. Strength and sensation grossly intact. Skin: Mid lower back dressing clean, dry and intact, no rash. Microbiology 04/13/20 19:45 Blood Blood Culture Gram Stain - Final 04/13/20 19:45 Blood Blood Culture - Preliminary Staphylococcus intermedius 04/13/20 19:30 Blood Blood Culture Gram Stain - Final 04/13/20 19:30 Blood Blood Culture - Preliminary Staphylococcus intermedius 04/15/20 09:53 Blood Blood Culture Gram Stain - Preliminary 04/15/20 09:53 Blood Blood Culture - Final 04/15/20 08:06 Back Gram Stain - Preliminary 04/15/20 08:06 Back Wound Culture - Preliminary 04/15/20 08:06 Back Gram Stain - Preliminary 04/15/20 08:06 Back Tissue Culture - Preliminary 04/15/20 08:06 Back Gram Stain - Preliminary 04/15/20 08:06 Back Wound Culture - Preliminary 04/15/20 08:06 Back Gram Stain - Preliminary 04/15/20 08:06 Back Wound Culture - Preliminary 04/15/20 08:06 Back Gram Stain - Preliminary 04/15/20 08:06 Back Wound Culture - Preliminary 04/15/20 08:06 Back Anaerobic Culture - Preliminary 04/15/20 08:06 Back Anaerobic Culture - Preliminary 04/15/20 08:06 Back Anaerobic Culture - Preliminary 04/15/20 08:06 Back Anaerobic Culture - Preliminary 04/15/20 08:06 Back Anaerobic Culture - Preliminary 04/14/20 15:36 Blood Blood Culture - Preliminary No Growth after 24 hours 04/13/20 19:45 Blood Blood Culture - Final 04/13/20 19:30 Blood Blood Culture - Final - Labs CBC & Chem 7: 04/16/20 07:11 04/16/20 07:11 Labs: Abnormal Lab Results - Last 24 Hours (Table) 04/15/20 04/15/20 04/16/20 Range/Units 09:53 09:53 07:11 WBC 11.0 H (3.8-10.6) k/uL Neutrophils # 9.8 H 7.8 H (1.3-7.7) k/uL Lymphocytes # 0.6 L (1.0-4.8) k/uL ESR 28 H (0-15) mm/hr Sodium 133 L (135-145) mmol/L Glucose 149 H (70-110) mg/dL Calcium 8.3 L (8.7-10.3) mg/dL C-Reactive Protein 15.5 H (0.0-0.8) mg/dL Microbiology - Last 24 Hours (Table) 04/15/20 09:53 Blood Culture - Final Blood 04/15/20 08:06 Gram Stain - Preliminary Back Wound Culture - Preliminary 04/15/20 08:06 Gram Stain - Preliminary Back Tissue Culture - Preliminary 04/15/20 08:06 Gram Stain - Preliminary Back Wound Culture - Preliminary 04/15/20 08:06 Gram Stain - Preliminary Back Wound Culture - Preliminary 04/15/20 08:06 Gram Stain - Preliminary Back Wound Culture - Preliminary 04/15/20 08:06 Anaerobic Culture - Preliminary Back 04/15/20 08:06 Anaerobic Culture - Preliminary Back 04/15/20 08:06 Anaerobic Culture - Preliminary Back 04/15/20 08:06 Anaerobic Culture - Preliminary Back 04/15/20 08:06 Anaerobic Culture - Preliminary Back 04/14/20 15:36 Blood Culture - Preliminary Blood No Growth after 24 hours 04/13/20 19:45 Blood Culture Gram Stain - Preliminary Blood Blood Culture - Preliminary Staphylococcus species 04/13/20 19:30 Blood Culture Gram Stain - Preliminary Blood Blood Culture - Preliminary Staphylococcus species Assessment and Plan Assessment: Sepsis secondary to postsurgical wound infection with Dehiscence,status post recent L5-S1 discectomy, no abscess reported per CT. preliminary cultures reporting staphylococcus species. Status post I&D. Hypertension, close monitoring, further recommendations to follow. Daily THC use Plan: Continue on current medication regime ,monitoring and symptomatic treatment. Pain management. Senokot added to med regimen. Final Blood Cultures pending,. Vancomycin as per ID. PICC line as per ID .Close monitoring of renal function with repeat labs ordered for a.m. The impression and plan of care has been dictated as directed. : I performed a history and examination of this patient, discussed the same with the dictator. I agree with the dictator's note ,documented as a scribe. Any additional findings or plans will be noted.
[2020-04-16] MEDS: HYDROmorphone 1 MG/ML 1 ML SYRINGE IVP PRN ×2 (15:24→20:28)
[2020-04-16] MEDS: VANCOMYCIN 2,000 MG in SODIUM CHLORIDE 0.9% 500 ML 500 ML IVPB SCH (15:24)
[2020-04-16] MEDS: SENNOSIDES-DOCUSATE SODIUM 1 EACH TAB PO SCH ×2 (15:25→15:26)
[2020-04-16] MEDS: ACETAMINOPHEN TAB 325 MG TAB PO PRN ×2 (15:25→20:28)
--- NOTE | 2020-04-16 18:00 | PN ---
PROGRESS NOTE DATE OF SERVICE: 04/16/2020 REASON FOR FOLLOWUP: Bacteremia and lumbar surgical site infection. INTERVAL HISTORY: Patient did spike a fever of 100.4 around 2 in the morning. This morning he is 99.7. The patient admits she was having some back pain last night, but seemed to be slightly improved. Denies having any chest pain or shortness of breath or cough. No abdominal pain. No diarrhea. PHYSICAL EXAMINATION: Blood pressure 159/77, pulse of 102. Temperature 99.7. He is 95% on room air. General description is a young male lying in bed in no distress. Respiratory system: Unlabored breathing. Clear to auscultation anteriorly. Heart S1, S2. Regular rate. ABDOMEN: Soft, no tenderness. LABS: Hemoglobin 13.1, white count 9.9, BUN of 10, creatinine 0.8. Blood cultures /7 positive as well. DIAGNOSTIC IMPRESSION AND PLAN: Patient with Staphylococcus intermedius bacteremia secondary to lumbosacral infection, status post debridement of the lumbar wound. Those cultures are showing Staphylococcus species. Patient is covered with vancomycin. Vancomycin trough has been low. Did adjust it up to keep the trough around 15. He will need a PICC line once he clear his bacteremia and continue supportive care. MMODL / IJN: [id number] /
[2020-04-17] MEDS: VANCOMYCIN 2,000 MG in SODIUM CHLORIDE 0.9% 500 ML 500 ML IVPB SCH ×4 (01:35→23:18)
[2020-04-17] MEDS: SODIUM CHLORIDE 0.9% 1,000 ML IV SCH ×4 (01:35→13:53)
[2020-04-17] MEDS: HYDROmorphone 1 MG/ML 1 ML SYRINGE IVP PRN ×3 (01:36→18:51)
[2020-04-17] MEDS: HYDROcodone/APAP 5-325MG 1 EACH TAB PO PRN ×3 (05:34→22:19)
[2020-04-17] MEDS: SENNOSIDES-DOCUSATE SODIUM 1 EACH TAB PO SCH ×2 (08:47→20:01)
[2020-04-17] MEDS: PANTOPRAZOLE 40 MG TABLET PO SCH (08:47)
[2020-04-17 09:58] LABS: African American GFR (CKD) 141.7 (60.0-200.0); Anion Gap 10.3 mmol/L (4.00-12.00); Calcium 8.5 mg/dL (8.7-10.3); Carbon Dioxide 27.7 mmol/L (21.6-31.8); Non-African American GFR(CKD) 122.3 (60.0-200.0); Potassium 3.7 mmol/L (3.5-5.5)
--- NOTE | 2020-04-17 10:23 | P.PN ---
Subjective Progress Note Date: 04/17/20 Principal diagnosis: Postoperative lumbar spine wound infection The patient notes improvement with regards to his pain. He's been ambulatory and eating. He's had good bowel and bladder function. Objective - Vital Signs Vital signs: Vital Signs Temp 98.9 F 04/17/20 08:16 Pulse 97 04/17/20 08:16 Resp 18 04/17/20 08:16 BP 142/80 04/17/20 08:16 Pulse Ox 97 04/17/20 08:16 Intake & Output 04/16/20 04/17/20 04/17/20 18:59 06:59 18:59 Intake Total 1760 Balance 1760 Intake: IV 760 Sodium Chloride 0.9% 1, 260 000 ml @ 130 mls/hr IV . Q7H42M [facility] Rx#:[id number] Vancomycin 1,750 mg In 500 Sodium Chloride 0.9% 500 ml 500 ml @ 167 mls/hr IVPB Q8H [facility] Rx#: [id number] Intake, IV Titration 500 Amount Vancomycin 2,000 mg In 500 Sodium Chloride 0.9% 500 ml 500 ml @ 167 mls/hr IVPB Q8HR [facility] Rx#: [id number] Oral 500 Other: Voiding Method Toilet Toilet # Voids 4 2 - Exam Lumbar spine incision well approximated, no warmth or erythema. Mild serosanguineous drainage. Light touch intact bilateral lower extremities No gross motor deficits bilateral lower extremities - Constitutional General appearance: Present: no acute distress - Labs CBC & Chem 7: 04/16/20 07:11 04/17/20 06:05 Labs: Abnormal Lab Results - Last 24 Hours (Table) 04/16/20 04/17/20 Range/Units 07:11 06:05 Sodium 134 L 131 L (135-145) mmol/L Chloride 93 L (96-109) mmol/L BUN 7.0 L (9.0-27.0) mg/dL BUN/Creatinine Ratio 10.00 L (12.00-20.00) Ratio Glucose 115 H (70-110) mg/dL Calcium 8.3 L 8.5 L (8.7-10.3) mg/dL Microbiology - Last 24 Hours (Table) 04/16/20 07:11 Blood Culture - Preliminary Blood No Growth after 24 hours 04/13/20 19:30 Blood Culture Gram Stain - Final Blood Blood Culture - Final Staphylococcus intermedius 04/14/20 15:36 Blood Culture - Preliminary Blood No Growth after 48 hours 04/15/20 08:06 Gram Stain - Preliminary Back Wound Culture - Preliminary Staphylococcus species 04/15/20 08:06 Gram Stain - Preliminary Back Wound Culture - Preliminary Staphylococcus species 04/15/20 08:06 Gram Stain - Preliminary Back Wound Culture - Preliminary Staphylococcus species 04/15/20 08:06 Gram Stain - Preliminary Back Tissue Culture - Preliminary Staphylococcus species 04/15/20 08:06 Gram Stain - Preliminary Back Wound Culture - Preliminary Staphylococcus species 04/13/20 19:45 Blood Culture Gram Stain - Final Blood Blood Culture - Preliminary Staphylococcus intermedius 04/15/20 09:53 Blood Culture Gram Stain - Preliminary Blood 04/15/20 09:53 Blood Culture - Final Blood Assessment and Plan Assessment: Status post irrigation and debridement lumbar spine infection/wound. Plan: Continue IV antibiotics per infectious disease. Await PICC line. Continue am bulation as tolerated. Time with Patient: Less than 30
--- NOTE | 2020-04-17 15:03 | P.PN ---
Subjective Progress Note Date: 04/17/20 Principal diagnosis: Sepsis secondary to postsurgical wound infection with Dehiscence,status post recent L5-S1 discectomy Mr. Alanis is a 33-year-old gentleman with a past medical history of recent microdiscectomy discectomy L5-S1 done 3 weeks back coming to the hospital with fever chills weakness and drainage from the incisional site. Patient had a remote the dressing prematurely then developed a sense along with serosanguineous discharge. Eventually patient had I&D done by orthopedic surgery and currently on antibiotics in the form of vancomycin. On 04/17/2020 - patient has been seen and examined on the general medical floors. Patient is sitting by the window on a chair appears to be in no acute distress. Patient states that he had some chills last night. She denies having any fever, lightheadedness or dizziness. Patient denies having any weakness of his extremities. Patient denies having any chest pain or palpitations. No cough or difficulty in breathing. No bowel pain nausea vomiting or diarrhea. No dysuria or hematuria. On reviewing his vitals patient had a fever of 100.2 last night, tachycardic at around 100, blood pressure 140/75, saturating at 97% on room air. On reviewing the microbiology patient's blood culture is positive for Staphylococcus intermedius and his wound culture is positive for the same. He is currently being maintained on vancomycin. Active Medications Acetaminophen (Acetaminophen Tab 325 Mg Tab) 650 mg PO Q6HR PRN PRN Reason: Mild Pain or Fever > 100.5 Last Admin: 04/16/20 20:28 Dose: 650 mg Documented by: Hydrocodone Bitart/Acetaminophen (Hydrocodone/Apap 5-325mg 1 Each Tab) 2 each PO Q4HR PRN PRN Reason: Pain Last Admin: 04/17/20 13:53 Dose: 2 each Documented by: Bisacodyl (Bisacodyl 5 Mg Tablet.Dr) 10 mg PO DAILY PRN PRN Reason: Constipation Last Admin: 04/16/20 09:49 Dose: 10 mg Documented by: Hydromorphone HCl (Hydromorphone 1 Mg/Ml 1 Ml Syringe) 1 mg IVP Q3HR PRN PRN Reason: Severe Pain Last Admin: 04/17/20 08:50 Dose: 1 mg Documented by: Hydromorphone HCl (Hydromorphone 0.5 Mg/0.5 Ml Syringe) 0.5 mg IVP Q3HR PRN PRN Reason: Moderate Pain Last Admin: 04/14/20 19:33 Dose: 0.5 mg Documented by: Sodium Chloride (Saline 0.9%) 1,000 mls @ 130 mls/hr IV .Q7H42M [facility] Last Admin: 04/17/20 13:53 Dose: 130 mls/hr Documented by: Vancomycin HCl 2,000 mg/ (Sodium Chloride) 500 mls @ 167 mls/hr IVPB Q8HR [facility] Last Admin: 04/17/20 08:47 Dose: 167 mls/hr Documented by: Miscellaneous Information (Vancomycin Trough Due 1 Each Misc) 0 each MISCELLANE DIRECTED ONE Stop: 04/18/20 07:01 Naloxone HCl (Naloxone 0.4 Mg/Ml 1 Ml Vial) 0.2 mg IV Q2M PRN PRN Reason: Opioid Reversal Ondansetron HCl (Ondansetron 4 Mg/2 Ml Vial) 4 mg IVP Q8HR PRN PRN Reason: Nausea And Vomiting Last Admin: 04/15/20 18:08 Dose: 4 mg Documented by: Pantoprazole Sodium (Pantoprazole 40 Mg Tablet) 40 mg PO AC-BRKFST [facility] Last Admin: 04/17/20 08:47 Dose: 40 mg Documented by: Senna/Docusate Sodium (Sennosides-Docusate Sodium 1 Each Tab) 2 each PO BID [facility] Last Admin: 04/17/20 08:47 Dose: 2 each Documented by: Objective - Vital Signs Vital signs: Vital Signs Temp 98.9 F 04/17/20 08:16 Pulse 97 04/17/20 08:16 Resp 18 04/17/20 08:16 BP 142/80 04/17/20 08:16 Pulse Ox 97 04/17/20 08:16 Intake & Output 04/16/20 04/17/20 04/17/20 18:59 06:59 18:59 Intake Total 1760 Balance 1760 Intake: IV 760 Sodium Chloride 0.9% 1, 260 000 ml @ 130 mls/hr IV . Q7H42M [facility] Rx#:[id number] Vancomycin 1,750 mg In 500 Sodium Chloride 0.9% 500 ml 500 ml @ 167 mls/hr IVPB Q8H [facility] Rx#: [id number] Intake, IV Titration 500 Amount Vancomycin 2,000 mg In 500 Sodium Chloride 0.9% 500 ml 500 ml @ 167 mls/hr IVPB Q8HR [facility] Rx#: [id number] Oral 500 Other: Voiding Method Toilet Toilet # Voids 4 2 - Exam PHYSICAL EXAM: GENERAL: Sitting up in bed, no acute distress HEENT: No pallor. No icterus. CARDIOVASCULAR: S1, S2 regular. No murmur RESPIRATION: Breath sounds diminished in the bases. No rhonchi or crackles. No wheezing. ABDOMEN: Soft, nontender . No guarding. no masses palpable. Positive bowel sounds. EXTREMITIES: No edema PSYCHIATRY: Alert and oriented X3, mood and affect normal. NERVOUS SYSTEM: No focal deficits. Skin: Mid lower back dressing clean, dry and intact, no rash. - Labs CBC & Chem 7: 04/16/20 07:11 04/17/20 06:05 Labs: Abnormal Lab Results - Last 24 Hours (Table) 04/17/20 Range/Units 06:05 Sodium 131 L (135-145) mmol/L Chloride 93 L (96-109) mmol/L BUN 7.0 L (9.0-27.0) mg/dL BUN/Creatinine Ratio 10.00 L (12.00-20.00) Ratio Calcium 8.5 L (8.7-10.3) mg/dL Microbiology - Last 24 Hours (Table) 04/15/20 08:06 Anaerobic Culture - Preliminary Back 04/15/20 08:06 Anaerobic Culture - Preliminary Back 04/15/20 08:06 Anaerobic Culture - Preliminary Back 04/15/20 08:06 Anaerobic Culture - Preliminary Back 04/15/20 08:06 Anaerobic Culture - Preliminary Back 04/13/20 19:45 Blood Culture Gram Stain - Final Blood Blood Culture - Final Staphylococcus intermedius 04/15/20 08:06 Gram Stain - Final Back Wound Culture - Final Staphylococcus intermedius 04/15/20 08:06 Gram Stain - Final Back Wound Culture - Preliminary Staphylococcus intermedius Pseudomonas spec 04/15/20 08:06 Gram Stain - Preliminary Back Wound Culture - Preliminary Staphylococcus intermedius Pseudomonas spec 04/15/20 08:06 Gram Stain - Final Back Tissue Culture - Final Staphylococcus intermedius 04/15/20 08:06 Gram Stain - Final Back Wound Culture - Final Staphylococcus intermedius 04/16/20 07:11 Blood Culture - Preliminary Blood No Growth after 24 hours 04/13/20 19:30 Blood Culture Gram Stain - Final Blood Blood Culture - Final Staphylococcus intermedius 04/14/20 15:36 Blood Culture - Preliminary Blood No Growth after 48 hours Assessment and Plan Assessment: ASSESSMENT Sepsis secondary to lumbosacral wound infection Bacteremia with Staphylococcus intermedius Recent L5-S1 discectomy Daily marijuana use Hypertension PLAN: Patient's blood cultures and wound cultures were positive for Staphylococcus intermedius, patient to be continued on vancomycin. Repeat blood cultures daily until no bacterial growth. ID Dr. Gan following the patient closely. Further recommendations to follow depending on the progress of the patient.
--- NOTE | 2020-04-17 17:34 | PN ---
PROGRESS NOTE DATE OF SERVICE: 04/17/2020 REASON FOR FOLLOWUP: Staphylococcal bacteremia secondary to lumbar surgical site infection. INTERVAL HISTORY: The patient is currently afebrile. The patient is feeling better. Overall pain and discomfort to the lumbar area has improved. Denies having any chest pain or shortness of breath or cough. No abdominal pain or diarrhea. PHYSICAL EXAMINATION: Blood pressure 135/79 with a pulse of 97, temperature 98.9. He is 93% on room air. General description is a middle-aged male lying in bed in no distress. RESPIRATORY SYSTEM: Unlabored breathing. Clear to auscultation anteriorly. HEART: S1, S2. Regular rate and rhythm. ABDOMEN: Soft. No tenderness. LABS: BUN of 7, creatinine 0.7. Blood cultures 04/16 so far negative. DIAGNOSTIC IMPRESSION AND PLAN: Patient with Staphylococcus intermedius bacteremia secondary to surgical site infection. Local culture now showing pseudomonas species as well. We will keep the patient on vancomycin. Add cefepime and monitor his clinical course closely. Continue with supportive care. MMODL / IJN: [id number] /
[2020-04-17] MEDS ORDERED: CEFEPIME 2 GM in SODIUM CHLORIDE 0.9% 100 ML IVPB ONE (21:00)
[2020-04-18] MEDS: HYDROmorphone 1 MG/ML 1 ML SYRINGE IVP PRN (03:48)
[2020-04-18] MEDS ORDERED: VANCOMYCIN TROUGH DUE 1 EACH MISC MISCELLANE ONE (07:00)
[2020-04-18 07:40] LABS: Basophils # (A) 0.1 k/uL (0-0.2); Basophils % (A) 1 %; Eosinophils # (A) 0.3 k/uL (0-0.7); Eosinophils % (A) 3 %; HCT 35.9 % (39.0-53.0); HGB 12.6 gm/dL (13.0-17.5); Lymphocytes # (A) 1.4 k/uL (1.0-4.8); Lymphocytes % (A) 15 %; MCH 30.6 pg (25.0-35.0); MCHC 35.1 g/dL (31.0-37.0); MCV 87.2 fL (80.0-100.0); Mean Platelet Volume 6.5; Monocytes # (A) 0.6 k/uL (0-1.0); Monocytes % (A) 7 %; Neutrophils # (A) 6.7 k/uL (1.3-7.7); Neutrophils % (A) 72 %; Platelet Count 321 k/uL (150-450); RBC 4.12 m/uL (4.30-5.90); RDW 12.4 % (11.5-15.5); WBC 9.4 k/uL (3.8-10.6)
[2020-04-18] MEDS: PANTOPRAZOLE 40 MG TABLET PO SCH (08:09)
[2020-04-18] MEDS: HYDROcodone/APAP 5-325MG 1 EACH TAB PO PRN ×4 (08:09→21:54)
[2020-04-18] MEDS: VANCOMYCIN 2,000 MG in SODIUM CHLORIDE 0.9% 500 ML 500 ML IVPB SCH ×3 (08:10→20:12)
[2020-04-18] MEDS: SENNOSIDES-DOCUSATE SODIUM 1 EACH TAB PO SCH ×2 (08:10→20:14)
[2020-04-18] MEDS: CEFEPIME 2 GM in SODIUM CHLORIDE 0.9% 100 ML IVPB SCH ×2 (08:11→21:54)
--- NOTE | 2020-04-18 09:07 | P.PN ---
Subjective Progress Note Date: 04/18/20 Principal diagnosis: Status post incision and drainage postoperative lumbar infection Patient notes he is doing well. He is been ambulatory. He has good return of bowel and bladder function. Objective - Vital Signs Vital signs: Vital Signs Temp 99.2 F 04/18/20 08:00 Pulse 87 04/18/20 08:00 Resp 20 04/18/20 08:00 BP 143/77 04/18/20 08:00 Pulse Ox 97 04/18/20 08:00 Intake & Output 04/17/20 04/18/20 04/18/20 18:59 06:59 18:59 Intake Total 2040 400 Balance 2040 400 Intake: IV 1040 Sodium Chloride 0.9% 1, 1040 000 ml @ 130 mls/hr IV . Q7H42M [facility] Rx#:[id number] Intake, IV Titration 1000 Amount Vancomycin 2,000 mg In 1000 Sodium Chloride 0.9% 500 ml 500 ml @ 167 mls/hr IVPB Q8HR [facility] Rx#: [id number] Oral 400 Other: Voiding Method Toilet # Voids 1 - Exam Lumbar incision clean/intact, minimal serosanguineous drainage Neurovascular exam intact bilateral lower extremities Homans negative bilateral lower extremities - Constitutional General appearance: Present: no acute distress - Labs CBC & Chem 7: 04/18/20 07:18 04/17/20 06:05 Labs: Abnormal Lab Results - Last 24 Hours (Table) 04/17/20 04/18/20 Range/Units 06:05 07:18 RBC 4.12 L (4.30-5.90) m/uL Hgb 12.6 L (13.0-17.5) gm/dL Hct 35.9 L (39.0-53.0) % Sodium 131 L (135-145) mmol/L Chloride 93 L (96-109) mmol/L BUN 7.0 L (9.0-27.0) mg/dL BUN/Creatinine Ratio 10.00 L (12.00-20.00) Ratio Calcium 8.5 L (8.7-10.3) mg/dL Microbiology - Last 24 Hours (Table) 04/15/20 09:53 Blood Culture Gram Stain - Final Blood Blood Culture - Final Staphylococcus intermedius 04/14/20 15:36 Blood Culture - Preliminary Blood No Growth after 72 hours 04/15/20 08:06 Anaerobic Culture - Preliminary Back 04/15/20 08:06 Anaerobic Culture - Preliminary Back 04/15/20 08:06 Anaerobic Culture - Preliminary Back 04/15/20 08:06 Anaerobic Culture - Preliminary Back 04/15/20 08:06 Anaerobic Culture - Preliminary Back 04/13/20 19:45 Blood Culture Gram Stain - Final Blood Blood Culture - Final Staphylococcus intermedius 04/15/20 08:06 Gram Stain - Final Back Wound Culture - Final Staphylococcus intermedius 04/15/20 08:06 Gram Stain - Final Back Wound Culture - Preliminary Staphylococcus intermedius Pseudomonas spec 04/15/20 08:06 Gram Stain - Preliminary Back Wound Culture - Preliminary Staphylococcus intermedius Pseudomonas spec 04/15/20 08:06 Gram Stain - Final Back Tissue Culture - Final Staphylococcus intermedius 04/15/20 08:06 Gram Stain - Final Back Wound Culture - Final Staphylococcus intermedius 04/16/20 07:11 Blood Culture - Preliminary Blood No Growth after 24 hours Assessment and Plan Assessment: Status post incision and drainage of postoperative lumbar infection Plan: Continue IV antibiotics per infectious disease for staph aureus and Pseudomonas. Continue to monitor clinically. Probable PICC line tomorrow. Time with Patient: Less than 30
[2020-04-18 11:57] LABS: African American GFR (CKD) 134.1 (60.0-200.0); Anion Gap 5.1 mmol/L (4.00-12.00); Calcium 8.4 mg/dL (8.7-10.3); Carbon Dioxide 32.9 mmol/L (21.6-31.8); Non-African American GFR(CKD) 115.7 (60.0-200.0); Potassium 3.6 mmol/L (3.5-5.5)
--- NOTE | 2020-04-18 19:00 | P.PN ---
Subjective Progress Note Date: 04/18/20 Principal diagnosis: Sepsis secondary to postsurgical wound infection with Dehiscence,status post recent L5-S1 discectomy Mr. Alanis is a 33-year-old gentleman with a past medical history of recent microdiscectomy discectomy L5-S1 done 3 weeks back coming to the hospital with fever chills weakness and drainage from the incisional site. Patient had a remote the dressing prematurely then developed a sense along with serosanguineous discharge. Eventually patient had I&D done by orthopedic surgery and currently on antibiotics in the form of vancomycin. On 04/17/2020 - patient has been seen and examined on the general medical floors. Patient is sitting by the window on a chair appears to be in no acute distress. Patient states that he had some chills last night. She denies having any fever, lightheadedness or dizziness. Patient denies having any weakness of his extremities. Patient denies having any chest pain or palpitations. No cough or difficulty in breathing. No bowel pain nausea vomiting or diarrhea. No dysuria or hematuria. On reviewing his vitals patient had a fever of 100.2 last night, tachycardic at around 100, blood pressure 140/75, saturating at 97% on room air. On reviewing the microbiology patient's blood culture is positive for Staphylococcus intermedius and his wound culture is positive for the same. He is currently being maintained on vancomycin. On 04/18/2020 - patient is comfortably sitting in bed appears to be no acute distress. Patient denies having any chills or fevers or rigors. No complaints of cough or difficulty in breathing. No chest pain or palpitations. No dysuria or hematuria. On reviewing the vitals temperature max 99.2, heart rate 87, respiratory 20, blood pressure 1 4370 since a study at 97% on room air. On reviewing the labs white count of 9.4, hemoglobin 12.6, platelets 321. Sodium 135, ratio 3.6, chloride 97, bicarb 32, BUN 8, creatinine 0.8. Patient's wound culture is positive for Staphylococcus intermedius and also Pseudomonas aeruginosa. So cefepime was added to his regimen. Active Medications Acetaminophen (Acetaminophen Tab 325 Mg Tab) 650 mg PO Q6HR PRN PRN Reason: Mild Pain or Fever > 100.5 Last Admin: 04/16/20 20:28 Dose: 650 mg Documented by: Hydrocodone Bitart/Acetaminophen (Hydrocodone/Apap 5-325mg 1 Each Tab) 2 each PO Q4HR PRN PRN Reason: Pain Last Admin: 04/18/20 17:02 Dose: 2 each Documented by: Bisacodyl (Bisacodyl 5 Mg Tablet.Dr) 10 mg PO DAILY PRN PRN Reason: Constipation Last Admin: 04/16/20 09:49 Dose: 10 mg Documented by: Hydromorphone HCl (Hydromorphone 1 Mg/Ml 1 Ml Syringe) 1 mg IVP Q3HR PRN PRN Reason: Severe Pain Last Admin: 04/18/20 03:48 Dose: 1 mg Documented by: Hydromorphone HCl (Hydromorphone 0.5 Mg/0.5 Ml Syringe) 0.5 mg IVP Q3HR PRN PRN Reason: Moderate Pain Last Admin: 04/14/20 19:33 Dose: 0.5 mg Documented by: Cefepime HCl 2 gm/ Sodium (Chloride) 100 mls @ 25 mls/hr IVPB Q12HR [facility] Last Admin: 04/18/20 08:11 Dose: 25 mls/hr Documented by: Vancomycin HCl 2,000 mg/ (Sodium Chloride) 500 mls @ 167 mls/hr IVPB Q6H [facility] Last Admin: 04/18/20 12:57 Dose: 167 mls/hr Documented by: Naloxone HCl (Naloxone 0.4 Mg/Ml 1 Ml Vial) 0.2 mg IV Q2M PRN PRN Reason: Opioid Reversal Ondansetron HCl (Ondansetron 4 Mg/2 Ml Vial) 4 mg IVP Q8HR PRN PRN Reason: Nausea And Vomiting Last Admin: 04/15/20 18:08 Dose: 4 mg Documented by: Pantoprazole Sodium (Pantoprazole 40 Mg Tablet) 40 mg PO -BRKFST [facility] Last Admin: 04/18/20 08:09 Dose: 40 mg Documented by: Senna/Docusate Sodium (Sennosides-Docusate Sodium 1 Each Tab) 2 each PO BID [facility] Last Admin: 04/18/20 08:10 Dose: 2 each Documented by: Objective - Vital Signs Vital signs: Vital Signs Temp 97.5 F L 04/18/20 14:00 Pulse 88 04/18/20 14:00 Resp 18 04/18/20 14:00 BP 140/83 04/18/20 14:00 Pulse Ox 96 04/18/20 14:00 Intake & Output 04/17/20 04/18/20 04/18/20 18:59 06:59 18:59 Intake Total 2040 400 1100 Balance 2040 400 1100 Intake: IV 1040 Sodium Chloride 0.9% 1, 1040 000 ml @ 130 mls/hr IV . Q7H42M [facility] Rx#:[id number] Intake, IV Titration 1000 1100 Amount Cefepime 2 gm In Sodium 100 Chloride 0.9% 100 ml @ 200 mls/hr IVPB ONCE@[facility] Rx#:[id number] Vancomycin 2,000 mg In 1000 Sodium Chloride 0.9% 500 ml 500 ml @ 167 mls/hr IVPB Q6H [facility] Rx#: [id number] Vancomycin 2,000 mg In 1000 Sodium Chloride 0.9% 500 ml 500 ml @ 167 mls/hr IVPB Q8HR [facility] Rx#: [id number] Oral 400 Other: Voiding Method Toilet # Voids 1 - Exam PHYSICAL EXAM: GENERAL: Sitting up in bed, no acute distress HEENT: No pallor. No icterus. CARDIOVASCULAR: S1, S2 regular. No murmur RESPIRATION: Breath sounds diminished in the bases. No rhonchi or crackles. No wheezing. ABDOMEN: Soft, nontender . No guarding. no masses palpable. Positive bowel sounds. EXTREMITIES: No edema NERVOUS SYSTEM: No focal deficits. Skin: Mid lower back dressing clean, dry and intact, no rash. - Labs CBC & Chem 7: 04/18/20 07:18 04/18/20 07:18 Labs: Abnormal Lab Results - Last 24 Hours (Table) 04/18/20 04/18/20 Range/Units 07:18 07:18 RBC 4.12 L (4.30-5.90) m/uL Hgb 12.6 L (13.0-17.5) gm/dL Hct 35.9 L (39.0-53.0) % Carbon Dioxide 32.9 H (21.6-31.8) mmol/L BUN 8.0 L (9.0-27.0) mg/dL BUN/Creatinine Ratio 10.00 L (12.00-20.00) Ratio Calcium 8.4 L (8.7-10.3) mg/dL Microbiology - Last 24 Hours (Table) 04/14/20 15:36 Blood Culture - Preliminary Blood No Growth after 96 hours 04/16/20 07:11 Blood Culture - Preliminary Blood No Growth after 48 hours 04/15/20 08:06 Gram Stain - Final Back Wound Culture - Final Staphylococcus intermedius Pseudomonas aeruginosa 04/15/20 08:06 Gram Stain - Final Back Wound Culture - Final Staphylococcus intermedius Pseudomonas aeruginosa 04/15/20 09:53 Blood Culture Gram Stain - Final Blood Blood Culture - Final Staphylococcus intermedius Assessment and Plan Assessment: ASSESSMENT Sepsis secondary to lumbosacral wound infection Bacteremia with Staphylococcus intermedius Recent L5-S1 discectomy Daily marijuana use Hypertension PLAN: Patient's blood cultures and wound cultures were positive for Staphylococcus intermedius and also Pseudomonas aeruginosa, patient to be continued on vancomycin, cefepime has been added. Repeat blood cultures daily until no bacterial growth. ID Dr. Gan following the patient closely. Further recommendations to follow depending on the progress of the patient.
--- NOTE | 2020-04-18 21:01 | PN ---
PROGRESS NOTE DATE OF SERVICE: 04/18/2020 REASON FOR FOLLOWUP: Lumbar surgical site infection with bacteremia. INTERVAL HISTORY: The patient is currently afebrile. The patient is feeling better. Denies having chest pain or shortness of breath or cough. Back pain is currently . No vomiting or diarrhea. PHYSICAL EXAMINATION: Blood pressure 147/84 with a pulse of 91, temperature 97.6. He is 99% on room air. General description is a middle-aged male lying in bed in no distress. RESPIRATORY SYSTEM: Unlabored breathing. Clear to auscultation anteriorly. HEART: S1, S2. Regular rate and rhythm. ABDOMEN: Soft. No tenderness. LABS: Hemoglobin is 12.3, white count 9.4. Vancomycin trough 10.5. DIAGNOSTIC IMPRESSION AND PLAN: Patient with a lumbar surgical site infection. Local culture with Staphylococcus intermedius and Pseudomonas aeruginosa. Blood culture only positive for Staphylococcus intermedius. Vancomycin dose needs to be adjusted up to keep the trough around 15. Cefepime has been added. for PICC line placement tomorrow for outpatient IV antibiotics. Continue with supportive care. MMODL / IJN: [id number] /
[2020-04-19] MEDS: VANCOMYCIN 2,000 MG in SODIUM CHLORIDE 0.9% 500 ML 500 ML IVPB SCH ×2 (01:58→08:30)
[2020-04-19] MEDS: HYDROcodone/APAP 5-325MG 1 EACH TAB PO PRN ×3 (04:01→13:21)
[2020-04-19] MEDS: SENNOSIDES-DOCUSATE SODIUM 1 EACH TAB PO SCH (07:15)
[2020-04-19 07:16] VITALS: BP 122/74; PULSE 81; RESP 16; TEMP 98.3
[2020-04-19] MEDS: CEFEPIME 2 GM in SODIUM CHLORIDE 0.9% 100 ML IVPB SCH (08:30)
[2020-04-19] MEDS: PANTOPRAZOLE 40 MG TABLET PO SCH (08:31)
--- NOTE | 2020-04-19 08:55 | P.PN ---
Subjective Progress Note Date: 04/19/20 Principal diagnosis: Lumbar wound dehiscence Patient seen and examined he is doing well today. States it feels much better than he has. Denies any fevers chills shortness breath or chest pain. States some back pain still but is getting better. Objective - Vital Signs Vital signs: Vital Signs Temp 98.3 F 04/19/20 07:16 Pulse 81 04/19/20 07:16 Resp 16 04/19/20 07:16 BP 122/74 04/19/20 07:16 Pulse Ox 99 04/19/20 07:16 Intake & Output 04/18/20 04/19/20 04/19/20 18:59 06:59 18:59 Intake Total 1100 300 Balance 1100 300 Intake: Intake, IV Titration 1100 Amount Cefepime 2 gm In Sodium 100 Chloride 0.9% 100 ml @ 200 mls/hr IVPB ONCE@[facility] Rx#:[id number] Vancomycin 2,000 mg In 1000 Sodium Chloride 0.9% 500 ml 500 ml @ 167 mls/hr IVPB Q6H [facility] Rx#: [id number] Oral 300 Other: Voiding Method Toilet # Voids 1 - Exam VSS AOX3 NAD Incision is CDI. Stitiches and sharlene in place. Dressing CDI. No EEE. Mild ttp. 5/5 B/L LE DF/PF/EHL/FHL/KF/KE/HF 5/5 UE B/L ALL major muscle groups 2/4 DTR all b/l 2/4 pulses distal SILT L2-S1 NEg hoffmans Neg babinski Neg clonus bilateral FROM all major joints. - Labs CBC & Chem 7: 04/18/20 07:18 04/18/20 07:18 Labs: Abnormal Lab Results - Last 24 Hours (Table) 04/18/20 Range/Units 07:18 Carbon Dioxide 32.9 H (21.6-31.8) mmol/L BUN 8.0 L (9.0-27.0) mg/dL BUN/Creatinine Ratio 10.00 L (12.00-20.00) Ratio Calcium 8.4 L (8.7-10.3) mg/dL Microbiology - Last 24 Hours (Table) 04/15/20 08:06 Gram Stain - Final Back Wound Culture - Final Staphylococcus intermedius Pseudomonas aeruginosa 04/15/20 08:06 Gram Stain - Final Back Wound Culture - Final Staphylococcus intermedius Pseudomonas aeruginosa 04/15/20 08:06 Gram Stain - Final Back Tissue Culture - Final Staphylococcus intermedius 04/15/20 08:06 Gram Stain - Final Back Wound Culture - Final Staphylococcus intermedius 04/14/20 15:36 Blood Culture - Preliminary Blood No Growth after 96 hours 04/16/20 07:11 Blood Culture - Preliminary Blood No Growth after 48 hours Assessment and Plan Assessment: 34-year-old male status post L5-S1 discectomy 3 weeks out with superficial skin dehiscence and continued drainage Post op Day 4 from I&D with revision complex closure. Plan: -Appreciate medicine management. -Appreciate ID recommendations for IV antibiotics. PICC line today cultures are negative. Patient growing Pseudomonas and staph from low back. Patient on vancomycin and cefepime. -Pain control: Adequate at this time -Aggressive ambulation protocol. OOB with all meals. OOB or in chair 4-5x daily. -PT/OT -TEDs, SCDs, mechanical ppx. OK for heparin today. Early ambulation is best. -GI ppx. -Further imaging needed at this time -Trend labs. -Dispo: Home today with antibiotics after PICC line when ID clears
[2020-04-19] MEDS ORDERED: LIDOCAINE 1% INJ 10MG/ML (20 ML MDV) ONE (10:40)
[2020-04-19 11:06] LABS: African American GFR (CKD) 141.7 (60.0-200.0); Non-African American GFR(CKD) 122.3 (60.0-200.0)
[2020-04-19] MEDS ORDERED: LIDOCAINE 1% INJ 10MG/ML (20 ML MDV) SQ ONE (11:10)
[2020-04-19] MEDS ORDERED: DAPTOmycin 750 MG in SODIUM CHLORIDE 0.9% 50 ML IVPB ONE (13:00)
--- NOTE | 2020-04-19 13:17 | IR ---
EXAMINATION TYPE: IR cvc insert >=5 years DATE OF EXAM: 04/19/2020 COMPARISON: NONE CLINICAL HISTORY: Infection Needs long-term intravenous access for antibiotics. PROCEDURE: Hand hygiene obtained with soap and water and alcohol-based hand rub. After informed consent, the skin overlying the left basilic vein was localized with ultrasound and no kristin to be compressible and patent. An ultrasound image was obtained and submitted on the patient's c millan. The overlying skin was prepped and draped and Lidocaine was used for local anesthesia. A skin lebron was made with a scalpel. Access was gained to the vein under ultrasound guidance with a 21 gau ge needle and a 0.018 inch wire was advanced. Access site was dilated with Peel-Away sheath and cath eter tailored to the appropriate length and advanced such that the distal tip is at the cavoatrial ju nction. Spot image was obtained verifying placement. Catheter was fixed to the skin and a sterile d ressing was placed following hemostasis. Catheter was aspirated and flushed with saline. Patient wa s discharged in stable condition without complication.Maximal barrier technique is utilized. Ultraso und image is documented on the chart. Ultrasound used with sterile technique. Fluoro time and fluoroscopic images submitted to document procedure: 0.3 minutes fluoroscopy time, 38 intraoperative images document the procedure IMPRESSION: STATUS POST ULTRASOUND AND FLUOROSCOPIC GUIDED PICC LINE PLACEMENT, READY FOR USE. THIS PROCEDURE WAS PERFORMED BY THE UNDERSIGNED.
--- NOTE | 2020-04-19 13:51 | P.DS ---
Providers Date of admission: 04/13/20 21:00 Expected date of discharge: 04/19/20 Attending physician: Bryn Watters DO Consults: 04/13/20 21:01 Consult Physician Routine Consulting Provider: Nicholas Hill Consult Reason/Comments: medical care Do you want consulting provider notified?: Yes Consult Physician Urgent Consulting Provider: Rodney Gan Consult Reason/Comments: Postoperative infection, sepsis Do you want consulting provider notified?: Yes Primary care physician: Nicholas Hill Hospital Course: Spine Surgery Discharge Summary Note Admission Date: 04/14/2019 Discharge Date: 2019 Providers: Malik Watters Principal Diagnosis: Lumbar wound dehiscence Procedures: Irrigation debridement lumbar wound Discharge Medications: See list Allergies: Known drug ALLERGIES Hospital Course: The patient was evaluated preoperatively and found to have the diagnosis of lumbar wound dehiscence. They underwent appropriate preoperative care and were willing to undergo the intended procedure. They underwent a successful irrigation and debridement of lumbar wound with revision complex closure, were recovered appropriately and sent to the floor. While on the floor they worked with physical therapy, occupational therapy and nursing to enhance their recovery experience. Their pain was well controlled through their stay and they were started on appropriate medications, DVT ppx modalities, activity and dietary needs. Daily labs were monitored closely, and transfusions were only used when necessary. Medicine as well as other consulting services have made their input and have helped with our team approach and multidisciplinary care. PT milestones have been met and passed and they have made the recommendation of home with home health and home antibiotics with PICC line placement for this patient and treating providers agree with this care path. The patient will be discharged home with appropriate medications, instructions and follow-up information and in stable condition. Patient Condition at Discharge: Stable Plan - Discharge Summary Discharge Rx Participant: Yes New Discharge Prescriptions: New Cyclobenzaprine [Flexeril] 10 mg PO TID #40 tab Gabapentin [Neurontin] 300 mg PO TID 3 Days #9 cap Hydrocodone/Acetaminophen [Blair 5-325] 1 - 2 tab PO Q4HR PRN #45 tab PRN Reason: Pain Sennosides/Docusate Sodium [Senna Plus 8.6-50 mg Softgel] 1 each PO BID PRN #20 capsule PRN Reason: Constipation No Action cefaDROXiL [Duricef] 500 mg PO BID Gabapentin 300 mg PO TID PRN PRN Reason: Pain Cyclobenzaprine [Flexeril] 10 mg PO TID PRN PRN Reason: Muscle Spasm Acetaminophen Tab [Tylenol] 1,000 mg PO Q6H PRN PRN Reason: Fever And/ Or Pain Discharge Medication List Acetaminophen Tab [Tylenol] 1,000 mg PO Q6H PRN 04/13/20 [History] Cyclobenzaprine [Flexeril] 10 mg PO TID PRN 04/13/20 [History] Gabapentin 300 mg PO TID PRN 04/13/20 [History] cefaDROXiL [Duricef] 500 mg PO BID 04/13/20 [History] Cyclobenzaprine [Flexeril] 10 mg PO TID #40 tab 04/19/20 [Rx] Gabapentin [Neurontin] 300 mg PO TID 3 Days #9 cap 04/19/20 [Rx] Hydrocodone/Acetaminophen [Blair 5-325] 1 - 2 tab PO Q4HR PRN #45 tab 04/19/20 [Rx] Sennosides/Docusate Sodium [Senna Plus 8.6-50 mg Softgel] 1 each PO BID PRN #20 capsule 04/19/20 [Rx] Follow up Appointment(s)/Referral(s): Nicholas Hill DO [Primary Care Provider] - 1-2 days Activity/Diet/Wound Care/Special Instructions: Spine Discharge and Recovery Instructions Date of Surgery: 04/15/2019 Diagnosis: Superficial lumbar wound dehiscence Procedure: Irrigation and debridement lumbar wound Medications: See list All medication refills should be obtained through your primary care doctor or your clinic spine surgeon. Please discuss prescription refills at your follow up appointment. Do not call the hospital for medication refills. Dressing: Leave your dressing in place for a total of 3 days post operatively. Then you may remove your dressing and leave open to air. Keep the area clean and if not able to keep area clean, then cover with sterile gauze and tape. Showering: You may shower 3 days after your procedure allowing soap and water to run over incision. Do not scrub. Do not soak. Blot dry. Follow up: Please confirm a follow up appointment with your surgeon 2 weeks post operatively. Please make an appointment to follow up with your PCP in 1-2 weeks after surgery for evaluation 3 phase, 3-week plan POST OP WEEKS 1-3 1. Lifting/carrying/pushing/pulling limited to less than 5 pounds. 2. Do not sit for longer than 15 minutes at one time. Get up and walk around. Prolonged sitting is NOT advised. If you lay down, see if you can tolerate laying down on you front (belly side) 3. Walk for periods of 15 minutes = 1 mile but no longer; do it multiple times times each day. 4.Ice your low back after activity. POST OP WEEKS 3-6 1. Lifting limited to less than 20 pounds. 2. Do not sit for longer than 30 minutes at a time. Frequently change positions. Use a sit-to stand workstation or take frequent breaks from sitting if you have returned to work. 3. Walk for 30 minutes each day. If possible, do these three or more times a day POST OP WEEKS 6+ At your 6-week appointment we will give you a physical therapy referral to focus on a core stabilization and strengthening program. You should also work on leg & buttock strengthening, hamstring & quadriceps stretching, and continue a low impact aerobic activity program such as swimming, walking, or riding a stationary bicycle. During the initial 6 weeks after your surgery, you are at the highest risk of re-injuring your spine. You should generally avoid BLTs (bending, lifting and twisting combination motions) and follow the above guidelines to reduce the chance of reinjury. You can anticipate post op appointments in our office at approximately 3 weeks and 6 weeks after your surgery. INCISION CARE: If your incision is not draining you do NOT need to cover it with a dressing. Keep your incision clean, dry and intact. In most cases, we apply skin glue, sharlene or sutures to the incision at the time of surgery. This will be like a crust or have the appearance of a scab and will fall off in time on its own. The stitches or sharlene need to be removed at 3 weeks post op appointment. You may begin to shower 3 days after surgery (this allows the glue to angel well). However, please avoid scrubbing the incision site or peeling off any of the skin glue. This will ensure optimal healing of your incision. Also, during this time avoid soaking the incision area in water - this includes swimming pools, hot tubs or baths. No ointments, lotions or oils on the incision until your surgeon allows. Leave sharlene, sutures or glue in place. Neurological dysfunction that comes on suddenly can also be a sign of a stroke. Below some common symptoms of a stroke are listed: B - balance difficulty such as sudden onset walking or leaning to one side - NEW E - eye problem such as sudden double vision or trouble seeing on one side - NEW F - Facial weakness or numbness on one side - NEW A - Arm or leg weakness or numbness on one side - NEW S - Slurred speech or difficulty with word finding - NEW T - Time is BRAIN! Call 911 as soon as you recognize these symptoms Diet: Consume a regular diet rich in vegetables and lean protein such as chicken or fish. You should consume in a ratio of approximately 20% fats|40% carbohydrates|40%protein. Vegetables, sweet potatoes, brown rice or quinoa are examples of good carbohydrates. Chips, white bread, cookies and sweets/sugar are examples of bad carbohydrates. Limit your bad carbs, go wild with good carbs. "Life's Simple 7" Guidelines as per [place] [employer] These will help you reclaim your life after surgery and cuprous chloride helper in your recovery, keeping in mind your restrictions. (1) Get Active. Physical activity can help people lose weight, control high blood pressure and cholesterol, feel emotionally better, and sleep better. (2) Control Cholesterol. Avoid a diet high in saturated fat, trans fat, & cholesterol. Limit whole milk & cream, ice cream, butter, egg yolks, processed meats (like sausage and hot dogs), and fatty meats. Choose healthy foods that are low in saturated fat, trans fat and cholesterol which include: Fruits and vegetables, fiber rich grain products (like whole grain pasta and brown rice), lean meat such as chicken, fish, nuts, seeds, and legumes. (3) Eat Better. Eat small portions. Shop at the grocery with a list and do not stray from it. Tips for a healthy diet include: Limit sodium intake to less than 1500mg daily, avoid prepackaged, processed, and fast foods, choose a diet rich in fruits, vegetables, and whole grain, high fiber foods, and limit saturated & cholesterol in your diet. (4) Manage Blood Pressure. If you have high blood pressure, you should have a cuff at home so that you can check your blood pressure regularly. Be sure you have a good cuff. An arm one is generally better than a wrist one. Bring the cuff to a doctor's appointment to validate that the measurements that your cuff are taking are accurate. Take your blood pressure twice daily when you are sitting down and relaxing. Record the numbers in a log and bring this log with you to your doctors' appointments. (5) Lose Weight if your BMI is above 25. A healthy BMI is between 19-25. To calculate Your BMI, you may use a Standard BMI Calculator on the NIH BMI website: <www.nhlbi.nih.gov/guidelines/obesity/BMI/bmicalc.htm>. Weigh oneself daily. If you are overweight, set a goal to lose weight. A pound a week loss if needed is a good target. (6) Reduce Blood Sugar. Limit foods and liquids with "added sugars." (Added sugars include sucrose, fructose, glucose, maltose, dextrose, high fructose corn syrup, corn syrup, concentrated fruit juice and honey). (7) Stop Smoking. If you smoke, quitting smoking is one of the best things that you can do for your health. Smoking increases your risk of heart attack, stroke, and peripheral vascular disease, which is a build-up of plaque in your arteries. Please discard all the cigarettes and lighters in your house. Have a plan for what you will do when you have the urge to smoke. Direct and second- hand smoke shortens your life as well as the lives of your family, friends and others around you. For your health and the health of those around you, please consider quitting! Proper Bending Body Mechanics: Maintain a wide stance with one foot slightly in front of the other. Keep your back straight. Bend utilizing the strength in your hips and knees. Do not bend at the waist. Maintain the lifted object at your waist-level close to your body. Avoid lifting weight that causes immediately pain or pain anywhere in the body afterwards. Smoking/Nicotine If there was ever one thing that you could do to increase your overall health, decrease your risk of cardiovascular problems by about 39% the second you make the choice, it is to STOP SMOKING. Your body's most instant gratification is the second you stop smoking. We have all heard the studies, read the articles but it is true, smoking is extremely bad for your overall health, and moreover it is detrimental to your bone health. Nicotine, IN ANY FORM, kills bone cells, prevents your body from healing fractures, and significantly prolongs healing after surgery. In spine surgery specifically, it increases your risk of not healing your bones to create a fusion and increases your risk of having a revision surgery due to this up to 60%. I know it is hard. I know it feels impossible. But there are ways. Take control of your life. We are here to help you through it. And when you are ready, ask us and we can direct you to help if you desire. Use the START Plan to Quit Smoking (please visit the Helpguide.org website listed below for more information): S = Set a quit date. Choose a date within the next 2 weeks, so you have enough time to prepare without losing your motivation to quit. If you mainly smoke at work, quit on the weekend, so you have a few days to adjust to the change. T = Tell family, friends, and co-workers that you plan to quit. Let your friends and family in on your plan to quit smoking and tell them you need their support and encouragement to stop. Look for a quit navin who wants to stop smoking as well. You can help each other get through the rough times. A = Anticipate and plan for the challenges you'll face while quitting. Most people who begin smoking again do so within the first 3 months. You can help yourself make it through by preparing ahead for common challenges, such as nicotine withdrawal and cigarette cravings. R = Remove cigarettes and other tobacco products from your home, car, and work. Throw away all your cigarettes (no emergency pack!), lighters, ashtrays, and matches. Wash your clothes and freshen up anything that smells like smoke. Shampoo your car, clean your drapes and carpet, and steam your furniture. T = Talk to your doctor about getting help to quit. Your doctor can prescribe medication to help with withdrawal and suggest other alternatives. If you can't see a doctor, you can get many products over the counter at your local pharmacy or grocery store, including the nicotine patch, nicotine lozenges, and nicotine gum. Resources for Quitting Smoking: <https://www.[place].gov/documents/[facility]/Quit_Tobacco_Resources_for_patients_313 480_7.pdf> Supplementation: Take recommended dosages of Vitamin D and Calcium to help fortify your bones and help them to heal. See your health maintenance packet for dosages and recommended levels. DVT/VTE prophylaxis: You will be given compression stockings from the hospital. Wear these daily for the first two weeks after surgery. You may take them off at night. You may be prescribed a medication to help thin your blood. Take this as directed. If you are not prescribed this medication, early and frequent ambulation has been shown to be the best prophylaxis to deep vein thrombosis and sequelae related to this event. Discharge Disposition: HOME WITH HOME HEALTH SERVICES
--- NOTE | 2020-04-19 14:39 | P.PN ---
Subjective Progress Note Date: 04/19/20 This is a 34-year-old gentleman with history of daily marijuana use, recent microdiscectomy L5-S1 3 weeks ago presenting with fevers, weakness, shakiness, incisional drainage. Apparently patient had removed the dressing prematurely developed dehiscence with serosanguineous drainage. Placed on prophylactic antibiotics but symptoms worsened in addition to drainage from surgical wound. Patient is scheduled for I&D today with orthopedic surgery. Denies chest pain, palpitations or shortness of breath. Denies lightheadedness dizziness or focal deficits. T-max 102.3, blood cultures obtained, pending. Received Rocephin followed by vancomycin. Chest x-ray reporting normal chest, no change. EKG sinus tachycardia, 04/15/2020 no overnight events. T-max 100.7, WBC 11. Lumbosacral spine CT reported air present within the posterior paraspinal soft tissues extending from L3 to L5 with no evidence of abscess formation, moderate right foraminal narrowing L5 to S1, post right hemilaminectomy L5. Preliminary blood cultures reporting staphylococcus species/gram-positive cocci in groups/gram-positive cocci in clusters. Maintained on vancomycin as per ID. renal function pending. Status post I&D, tolerated procedure well. Denies chest pain, palpitations or shortness of breath. Denies lightheadedness dizziness or focal deficits. 04/16/2020 status post I&D of yesterday. Complains of nausea and pain throughout the night. Pain better controlled this morning. Nausea resolved, consuming 100% of breakfast. T-max 100.1, normal WBC . Repeat blood culture from 04/15 reporting gram-positive cocci. Maintained on vancomycin, renal function within normal limits. Ambulating to and from bathroom, tolerated exertion well. Denies lightheadedness, dizziness or focal deficits. Denies lower extremity weakness or difficulty ambulating. Complains of constipation. Denies chest pain, palpitations or shortness of breath. 04/19/20 local cultures grew Streptococcus intermedius and pseudomonas aeru ginosa, blood cultures positive for Staphylococcus intermedius. Maintained on vancomycin. Significant improvement in back pain He is scheduled for PICC line placement today. afebrile denies chest pain, palpitations or shortness of breath. Denies lightheadedness, dizziness or focal deficits. Objective - Vital Signs Vital signs: Vital Signs Temp 98.3 F 04/19/20 07:16 Pulse 81 04/19/20 07:16 Resp 16 04/19/20 07:16 BP 122/74 04/19/20 07:16 Pulse Ox 99 04/19/20 07:16 Intake & Output 04/18/20 04/19/20 04/19/20 18:59 06:59 18:59 Intake Total 1100 300 Balance 1100 300 Intake: Intake, IV Titration 1100 Amount Cefepime 2 gm In Sodium 100 Chloride 0.9% 100 ml @ 200 mls/hr IVPB ONCE@[facility] Rx#:[id number] Vancomycin 2,000 mg In 1000 Sodium Chloride 0.9% 500 ml 500 ml @ 167 mls/hr IVPB Q6H [facility] Rx#: [id number] Oral 300 Other: Voiding Method Toilet # Voids 1 - Exam PHYSICAL EXAM: VITAL SIGNS: As above GENERAL: Sitting up at side of bed, no acute distress HEENT: Conjunctivae normal. eyes normal. NECK: No JVD. No thyroid enlargement. CARDIOVASCULAR: S1, S2 regular. No murmur RESPIRATION: Breath sounds diminished in the bases. No rhonchi or crackles. No wheezing. ABDOMEN: Soft, nontender . No guarding. no masses palpable. Positive bowel sounds. LEGS: No edema. no swelling. PSYCHIATRY: Alert and oriented X3, mood and affect normal. NERVOUS SYSTEM: Cranial N 2-12 grossly normal. Moves all 4 limbs. No focal deficits. Strength and sensation grossly intact. Skin: Mid lower back dressing clean, dry and intact, no rash. Microbiology 04/15/20 08:06 Back Anaerobic Culture - Final 04/15/20 08:06 Back Anaerobic Culture - Final 04/15/20 08:06 Back Anaerobic Culture - Final 04/15/20 08:06 Back Anaerobic Culture - Final 04/15/20 08:06 Back Anaerobic Culture - Final 04/16/20 07:11 Blood Blood Culture - Preliminary No Growth after 72 hours 04/15/20 08:06 Back Gram Stain - Final 04/15/20 08:06 Back Wound Culture - Final Staphylococcus intermedius Pseudomonas aeruginosa 04/15/20 08:06 Back Gram Stain - Final 04/15/20 08:06 Back Wound Culture - Final Staphylococcus intermedius Pseudomonas aeruginosa 04/15/20 08:06 Back Gram Stain - Final 04/15/20 08:06 Back Tissue Culture - Final Staphylococcus intermedius 04/15/20 08:06 Back Gram Stain - Final 04/15/20 08:06 Back Wound Culture - Final Staphylococcus intermedius 04/14/20 15:36 Blood Blood Culture - Preliminary No Growth after 96 hours 04/15/20 09:53 Blood Blood Culture Gram Stain - Final 04/15/20 09:53 Blood Blood Culture - Final Staphylococcus intermedius 04/13/20 19:45 Blood Blood Culture Gram Stain - Final 04/13/20 19:45 Blood Blood Culture - Final Staphylococcus intermedius 04/15/20 08:06 Back Gram Stain - Final 04/15/20 08:06 Back Wound Culture - Final Staphylococcus intermedius 04/13/20 19:30 Blood Blood Culture Gram Stain - Final 04/13/20 19:30 Blood Blood Culture - Final Staphylococcus intermedius 04/15/20 09:53 Blood Blood Culture - Final 04/13/20 19:45 Blood Blood Culture - Final 04/13/20 19:30 Blood Blood Culture - Final - Labs CBC & Chem 7: 04/18/20 07:18 04/19/20 06:19 Labs: Abnormal Lab Results - Last 24 Hours (Table) 04/18/20 Range/Units 07:18 Carbon Dioxide 32.9 H (21.6-31.8) mmol/L BUN 8.0 L (9.0-27.0) mg/dL BUN/Creatinine Ratio 10.00 L (12.00-20.00) Ratio Calcium 8.4 L (8.7-10.3) mg/dL Microbiology - Last 24 Hours (Table) 04/16/20 07:11 Blood Culture - Preliminary Blood No Growth after 72 hours 04/15/20 08:06 Gram Stain - Final Back Wound Culture - Final Staphylococcus intermedius Pseudomonas aeruginosa 04/15/20 08:06 Gram Stain - Final Back Wound Culture - Final Staphylococcus intermedius Pseudomonas aeruginosa 04/15/20 08:06 Gram Stain - Final Back Tissue Culture - Final Staphylococcus intermedius 04/15/20 08:06 Gram Stain - Final Back Wound Culture - Final Staphylococcus intermedius 04/14/20 15:36 Blood Culture - Preliminary Blood No Growth after 96 hours Assessment and Plan Assessment: Sepsis secondary to postsurgical wound infection with Dehiscence,status post recent L5-S1 discectomy, no abscess reported per CT. Status post I&D. Local cultures reported Staphylococcus intermedius and pseudomonas aeruginosa, blood culture reported Staphylococcus intermedius. PICC line placement prior to discharge. Hypertension, close monitoring, further recommendations to follow. Daily THC use Plan: Continue on current medication regime ,monitoring and symptomatic treatment. Discharge planning in progress pending PICC line placement .maintain Close monitoring of renal function.follow-up with PCP in 3 days. The impression and plan of care has been dictated as directed. : I performed a history and examination of this patient, discussed the same with the dictator. I agree with the dictator's note ,documented as a scribe. Any additional findings or plans will be noted.
--- NOTE | 2020-04-19 15:05 | PN ---
PROGRESS NOTE DATE OF SERVICE: 04/19/2020 REASON FOR FOLLOWUP: Lumbar surgical site infection with bacteremia. INTERVAL HISTORY: The patient was seen on rounds early this afternoon. The patient has been afebrile, has been breathing comfortably. Denies having any chest pain. No shortness of breath or cough. No nausea. No vomiting. No abdominal pain. No pain with to the back area. PHYSICAL EXAMINATION: Blood pressure 122/74 with pulse of 81, temperature 98.3. He is 99% on room air. General description is a young male lying in bed in no distress. RESPIRATORY SYSTEM: Unlabored breathing, clear to auscultation anteriorly. HEART: S1, S2. Regular rate and rhythm. ABDOMEN: Soft. No tenderness. LABS: Creatinine 0.7. Blood culture repeat has been negative. DIAGNOSTIC IMPRESSION AND PLAN: Patient with surgical site infection with Streptococcus intermedius bacteremia. Patient has been on vancomycin. However, the patient does not have good outpatient home antibiotic coverage and leather case finisher requested to switch him to once a day antibiotic. mg daily for 4 weeks as he does not have any antibiotic for Pseudomonas and will be given Cipro 750 mg twice a day. Follow up in the office in 1 week with close outpatient followup. MMODL / IJN: [id number] /
[2020-04-20] MEDS ORDERED: VANCOMYCIN TROUGH DUE 1 EACH MISC MISCELLANE ONE (07:30)
--- NOTE | 2020-04-23 09:03 | CDI ---
Documentation Clarification Form Date: 04/23/2020 From: Isabela Taylor RN, CCDS Admit date: 04/13/2020 Patient Name: Jabari Alanis (M 34Yrs) Visit ID: [id number] DC date: 04/19/2020 Dr. Bryn Watters 04/15 Operative note: Incision with irrigation and debridement of skin, soft tissue, muscles and bone of the lumbar spine. You have provided four of the elements required. To accurate capture the procedure please provide the technique used in the procedure. History/Risk Factors: L5-S1 microdiscectomy Clinical Indicators: 34-year-old male who is 3 weeks status post L5-S1 microdiscectomy present to the ED on 04/13 complaining of fever and low back pain and continued drainage from his wound. On 04/15 he was taken for a exploration laminotomy and Incision with irrigation and debridement. Treatment: Exploratory Laminotomy, Incision with irrigation and debridement Aggressive ambulation protocol PT/OT TEDs, SCDs Vancomycin 1,750 mg IVPB Q 8 HRS,04/14 increased to 2,000 mg 04/15-04/18 (PTD) Dilaudid .5 mg IV once then Q3 PRN PICC line for outpatient IV abx Five elements required for accurate and compliant documentation of a debridement: 1. Technique used (e.g., excisional, excised, cutting, etc.) 2. Instrument(s) used (e.g., scalpel, curette, etc.) 3. Nature of the tissue removed (e.g., necrotic, devitalized tissues, non- viable tissue, etc.) 4. Appearance and size of the wound (e.g., down to fresh bleeding tissue, 7cm x 10cm, etc.) 5. Depth of the debridement* (e.g., skin, subcutaneous tissue, fascia, muscle, bone, etc.) In order to capture the severity of condition and code the appropriate procedure; could you please document the following: Excisional debridement (the removal of necrotic, devitalized tissue or slough by means of cutting away of tissue) Non-excisional debridement (the removal of necrotic, devitalized tissue or slough by means of flushing, brushing, or washing. (Irrigation) Other; please specify Unable to determine (Last Revision: July 2017) Excisional debridement (the removal of necrotic, devitalized tissue or slough by means of cutting away of tissue) [facility]
== END 2020-04-19 14:19 | disposition home health service (06) | DRG 856 ==
LOC: EC 18:31 → 4SSUR 21:00
PROVIDERS: ADMIT Orthopaedic Surgery; ATTEND Orthopaedic Surgery
PROC: 0QB00ZZ Excision of Lumbar Vertebra, Open Approach (ICD-10-PCS; principal; 2020-04-15 07:30)
PROC: 00NY0ZZ Release Lumbar Spinal Cord, Open Approach (ICD-10-PCS; principal; 2020-04-15 07:30)
PROC: 02HV33Z Insertion of Infusion Device into Superior Vena Cava, Percutaneous Approach (ICD-10-PCS; 2020-04-19)
DX: T81.41XA Infection following a procedure, superficial incisional surgical site, initial encounter (principal); A40.9 Streptococcal sepsis, unspecified; T81.30XA Disruption of wound, unspecified, initial encounter; F12.90 Cannabis use, unspecified, uncomplicated; I10 Essential (primary) hypertension; Z20.822 Contact with and (suspected) exposure to COVID-19; K59.00 Constipation, unspecified; Z79.899 Other long term (current) drug therapy; Z98.1 Arthrodesis status
CPT/HCPCS: 36415; 36573; 71046; 72131; 80048; 80053; 80202; 81001; 82565; 83605; 85025; 85610; 85652; 85730; 86140; 87040; 87070; 87075; 87077; 87186; 87205; 87635; 93005; 96361; 96374; 99285

== ENCOUNTER → 2020-05-10 | Outpatient (CLI) | payer BC ==
--- NOTE | 2020-05-10 21:49 | MR ---
EXAMINATION TYPE: MR lumbar spine wo/w con DATE OF EXAM: 05/10/2020 COMPARISON: CT lumbar spine April 14, 2020 HISTORY: Back pain radiating down center and left side x3 weeks, prev back surgery 03/24/20 and 1 TECHNIQUE: Multiplanar, multisequence images of the lumbar spine is performed without and with IV contrast, util izing 10 mL intravenous Gadavist FINDINGS: Sagittal images of the lumbar spine show vertebral body heights and alignment to main satis factory. There is disc desiccation with mild disc space narrowing at L5-S1 level. There is heterogene ous Modic type III endplate change at this level The conus medullaris is normal in position and sign al ending superior L1 level. Postsurgical change posteriorly is noted in the lower lumbar spine. Nons pecific enhancement of the endplates L5-S1 level without disc enhancement suggest product of recent s urgery. Axial images show T12-L1, L1-L2, L2-L3, and L3-L4 levels all to appear within normal limits. Axial images at the L4-L5 level shows mild facet degenerative changes bilaterally. Spinal canal is pr eserved. Mild broad-based posterior disc protrusion. Patent bilateral neural foramina. Axial images at the L5-S1 level show [id number]-[id number]-mrhgsqwl broad disc bulge and mild facet degenerative ch anges bilaterally. There is right-sided laminectomy defect. Enhancing developing scar tissue right pa raspinal region extends anteriorly axial image 2 just posterior to the disc. There is moderate right and severe left-sided neural foraminal narrowing. Encroachment on left L5 nerve at the foraminal leve l sagittal image 3 and axial image 4 is noted. Spinal canal preserved. There is superficial posterior irregular thin-walled fluid collection measuring roughly 7 cm in lengt h sagittal image 7 favoring postsurgical seroma. IMPRESSION: Right sided laminectomy defect L5 level. Spinal canal preserved. Disc herniation and face t arthropathy contributes to left greater than right neural foraminal narrowing at this level more pr ominent on the left with suspected left L5 encroachment. New right-sided developing scar tissue suspe cted.
== END | disposition home or self-care (01) ==
LOC: RADMRIMAIN 19:43
PROVIDERS: ATTEND Orthopaedic Surgery
DX: M48.061 Spinal stenosis, lumbar region without neurogenic claudication (principal); M51.26 Other intervertebral disc displacement, lumbar region; M47.816 Spondylosis without myelopathy or radiculopathy, lumbar region; Z98.890 Other specified postprocedural states
CPT/HCPCS: 72158

== ENCOUNTER 2020-06-25 07:23 | Day surgery (SDC) | payer BC ==
[2020-06-25 07:58] VITALS: TEMP 98.5
[2020-06-25] MEDS ORDERED: LACTATED RINGERS 1,000 ML IV ONE (08:00)
[2020-06-25] MEDS ORDERED: methylPREDNISolone ACETATE 40 MG/ML 1 ML VIAL ONE (08:06)
[2020-06-25] MEDS ORDERED: IOPAMIDOL M200 10 ML VIAL ONE (08:06)
[2020-06-25] MEDS ORDERED: fentaNYL (PF) 50 MCG/ML 2 ML AMP ONE ×2 (08:06)
[2020-06-25] MEDS ORDERED: MIDAZOLAM 2 MG/2 ML VIAL ONE ×2 (08:06)
[2020-06-25] MEDS ORDERED: IV FLUID CONTINUATION 1,000 ML IV ONE (08:22)
--- NOTE | 2020-06-25 08:24 | P.PCN ---
Date of Procedure: 06/25/20 Procedure(s) Performed: PREOPERATIVE DIAGNOSIS:1- Lumbar radiculopathy . POSTOPERATIVE DIAGNOSIS: Same as preoperative diagnoses. PROCEDURE 1. Transforaminal epidural steroid injection under fluoroscopic guidance at left L5-S1 level. (Fluoroscopy images stored on file in the radiology Department ) 2. Lumbar epidurogram . ANESTHESIA: Monitored anesthesia care as per anesthesia department. EBL: Minimal PROCEDURE INDICATION: The patient with low back pain and radiculopathy symptoms unresponsive to conservative treatment. PROCEDURE DESCRIPTION / TECHNIQUE: The patient was seen and identified in the preoperative area. Risks, benefits, complications, and alternatives were discussed with the patient. The patient agreed to proceed with the procedure and signed the consent. IV was started, and vital signs were stable. Patient was taken to the OR and time out was completed. The patient was placed in the prone position on procedure table and a pillow was placed under the abdomen to reduce lumbar lordosis. The lumbosacral area was prepped and draped in the usual sterile fashion. Critical pause was taken. Vital signs were closely monitored during the procedure. Conscious sedation was used during the procedure to decrease patient s anxiety. Using oblique fluoroscopy, the chin of the `Alcidesy dog at left L5-S1 level was identified, and the skin and deeper tissues just below was localized with 1% lidocaine. Subsequently, a 22-gauge 3.5-inch spinal needle was advanced under a tunneled view fluoroscopic guidance just underneath the chin of the `Alcidesy dog at the left L5-S1 Under lateral fluoroscopy, the needle was then advanced to the posterior border of the interforaminal space. After negative aspiration of CSF and blood and with no paresthesias, 1 mL Isovue 200 contrast dye was injected excellent epidurogram and outlining of the nerve root Subsequently, 3 mL of block solution containing 80 mg Depo-Medrol and 2 mL of 0.9% normal saline PF was injected. then Needl removed . At the end of the procedure, skin was cleansed, and bandages were applied. COMPLICATIONS:none DISPOSITION / PLANS: The patient was placed in a supine position and transferred to the recovery area in a stable condition for observation. There was no evidence of lower extremity motor or sensory deficit after the procedure. Patient was discharged from the recovery room after meeting discharge criteria. Home discharge instructions were given to the patient by the staff. The patient was reexamined prior to discharge.
[2020-06-25 08:26] VITALS: PULSE 88; RESP 16
[2020-06-25 08:42] VITALS: BP 116/78
--- NOTE | 2020-06-25 11:09 | FL ---
EXAMINATION TYPE: FL guided pain mgmt statistic DATE OF EXAM: 06/25/2020 HISTORY: Fluoroscopy time 5 seconds of fluoroscopy provided. IMPRESSION: 1. Fluoroscopy time.
== END 2020-06-25 09:13 | disposition home or self-care (01) ==
LOC: ORPAIN 07:23
PROVIDERS: ATTEND Specialist
DX: M47.816 Spondylosis without myelopathy or radiculopathy, lumbar region (principal); Z79.891 Long term (current) use of opiate analgesic; Z79.899 Other long term (current) drug therapy
CPT/HCPCS: 64483; J2250; J1030; J3010; Q9966